=== PATIENT | female | born 1975 | race Caucasian/White ===

== ENCOUNTER 2022-04-01 09:49 | Day surgery (SDC) | payer OTHER, SELFPAY ==
[2022-04-01] VITALS (21 sets, daily range): BP systolic 129–177; BP diastolic 80–110; PULSE 77–103; RESP 18; TEMP 35.7–36.8; O2SAT 96–100; BMI 35.2; BMI 35.0
--- NOTE | 2022-04-01 11:03 | ED.ABDPAIN ---
HPI - Abdominal Pain General Time Seen by Provider: 11:03 Date Seen: 04/01/22 Chief Complaint: Abdominal Pain Stated Complaint: Gallbladder pain, nausea Time Seen by Provider: 04/01/22 11:01 Source: patient Mode of arrival: ambulatory Limitations: no limitations History of Present Illness HPI narrative: Luna is a 46 year old female s/p ERCP at [facility] on 03/28 presents to the ED via private care with abdominal pain. Patient has a history of iron deficiency anemia, due to menorrhagia in the past, patient states that since her ERCP and sphincterectomy on 03/28 she was doing well, she ate tacos yesterday, around 5:00 p.m. she developed some right upper quadrant pain that radiates to her back, since then she has had ongoing nausea vomiting can not keep anything down, pain is 3/10. She denies any urinary complaints she did have some diarrhea, she is scheduled to see General surgery on 04/25 for possible cholecystectomy. She denies any fevers but has had chills, she denies any upper respiratory complaints, no cough, chest pain or shortness of breath. Pain is constant dull ache with intermittent sharp pains. Due to worsening pain presents emergency department. Related Data Home Medications Medication Instructions Recorded Confirmed ferrous sulfate 142 mg (45 mg 142 mg PO DAILY 04/01/22 04/01/22 iron) tablet,extended release (Slow Fe) ondansetron 4 mg disintegrating 4 mg PO Q4H PRN 04/01/22 04/01/22 tablet paroxetine HCl 30 mg tablet 30 mg PO DAILY 04/01/22 04/01/22 Previous Rx's Medication Instructions Recorded amoxicillin 875 mg-potassium 1 tab PO BID #14 tabs 04/02/22 clavulanate 125 mg tablet hydrocodone 5 mg-acetaminophen 325 1 - 2 tab PO Q6H PRN pain #25 tabs 04/02/22 mg tablet Allergies Allergy/AdvReac Type Severity Reaction Status Date / Time Sulfa (Sulfonamide Allergy Intermediate Verified 04/01/22 10:01 Antibiotics) Review of Systems Status of ROS Reports: 10 or more systems reviewed and unremarkable except as noted in History and below [facility] Medical History (Updated 04/01/22 @ 20:14 by Tiffanie Alonso MD) Depression with anxiety Fibroid uterus Iron deficiency anemia Menorrhagia Obesity Surgical History (Updated 04/01/22 @ 20:08 by Tiffanie Alonso MD) H/O wisdom tooth extraction S/P ERCP Social History (Updated 04/01/22 @ 20:11 by Tiffanie Alonso MD) Narrative: She works in at a [employer]; ; one daughter. Lives in [place]. no tobacco; social alcohol. Highest level of school completed/degree received: Master's degree Smoking Status: Never smoker Do you use any of these nicotine containing products: None Second hand tobacco smoke exposure: No How often do you have a drink containing alcohol: monthly or less How many standard drinks containing alcohol do you have on a typical day: 1 or 2 How often do you have six or more drinks on one occasion: Never AUDIT-C Alcohol total score: 1 Non-prescribed substance use: denies use Caffeine: Yes (coffee) service: No Exam Const: Vital Signs, click to edit/add: Vital Signs - 24 hr 04/01/22 09:56 04/01/22 11:45 04/01/22 11:46 Temperature 96.3 F L Pulse Rate 88 94 Pulse Rate [Pulse Oximeter] 98 Respiratory Rate 18 Blood Pressure 164/92 H Blood Pressure [Ri ght Upper Arm] 160/105 H Pulse Oximetry 99 98 98 Oxygen Delivery Me thod Room Air 04/01/22 12:00 04/01/22 12:01 04/01/22 12:02 Temperature Pulse Rate 89 94 91 Pulse Rate [Pulse Oximeter] Respiratory Rate Blood Pressure 151/92 H Blood Pressure [Ri ght Upper Arm] Pulse Oximetry 98 99 100 Oxygen Delivery Me thod 04/01/22 12:30 04/01/22 12:32 04/01/22 13:00 Temperature Pulse Rate 93 93 95 Pulse Rate [Pulse Oximeter] Respiratory Rate Blood Pressure 136/80 Blood Pressure [Ri ght Upper Arm] Pulse Oximetry 97 97 97 Oxygen Delivery Me thod 04/01/22 13:01 04/01/22 13:31 04/01/22 14:01 Temperature Pulse Rate 93 Pulse Rate [Pulse Oximeter] Respiratory Rate Blood Pressure 143/86 H 144/85 H 143/86 H Blood Pressure [Ri ght Upper Arm] Pulse Oximetry 97 Oxygen Delivery Me thod Common normals: no apparent distress and oriented x3 General appearance: cooperative Orientation/consciousness: Yes awake, Yes oriented to person and Yes oriented to place HENMT: Common normals: normocephalic, TM's normal bilaterally and external nose normal Head and scalp: normal to inspection and normocephalic Nose: external nose normal Tympanic membrane: TM's normal bilaterally Mouth: oral and palatal mucosa normal Eye: Common normals: PERRL and EOMs intact bilaterally Pupil: PERRL Neck & C-Spine: Common normals: full ROM and supple Lymph: Lymphatic: no lymphadenopathy noted Chest: Common normals: inspection of chest normal Resp: Common normals: normal respiratory effort and clear to auscultation bilaterally Auscultation: clear to auscultation bilaterally Cardio: Common normals: regular rate, S1 normal heart sound, S2 normal heart sound and peripheral pulses 2+ throughout Rate: regular rate Heart sounds: S1 normal and S2 normal Peripheral pulses: pulses 2+ throughout GI: Common normals: soft to palpation Palpation: soft Other: Tender to palpation the right upper quadrant and right flank area, no rebound or guarding. : Common normals: no CVA tenderness Bladder/kidney exam: no CVA tenderness Back & Pelvis: Common normals: no CVA tenderness Extremity: Common normals: normal to inspection and full ROM Neuro: Common normals: oriented x3, CN's II-XII intact bilaterally and moves all extremities Sensorium/orientation: awake, oriented to person and oriented to place Course Course Hospital Course: 11:15 AM: AIDET performed, workup will include IV peripheral, 15 mg IV Toradol, 4 mg IV Zofran for pain and nausea, will obtain ECG, troponin, CBC, CRP, CMP and lipase, urinalysis, 1 L of 0.9 normal saline bolus, will also obtain a US gallbladder. Patient was in agreement. Reevaluation(s) Reevaluation #1: ECG showed a normal sinus rhythm, BPM 95, low-voltage QRS, no comparisons. CBC showed a leukocytosis 16.65, which according to patient is chronic,, hemoglobin stable at 9.8, MCV of 59 consistent with her iron deficiency anemia, metabolic panel showed mildly elevated AST, CRP was within normal limits, bilirubin labs within normal limits as well as lipase, point of care troponin negative, patient was updated, US showed 1. Cholelithiasis and gallbladder sludge, without findings to suggest cholecystitis. 2. Mild hepatic steatosis. 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 1:30 PM: Spoke with Dr. Palomo general surgery on-call, she will come and evaluate the patient, patient is doing well, pain has been controlled as well as nausea. Time: 12:57 Reevaluation #2: Recommendations by General surgery were to have her follow up as an outpatient or cholecystectomy tomorrow, patient decided to have surgery tomorrow, this was discussed with hospitalist Dr. Alonso, she accepts care of the patient to a [facility]. All questions answered. Time: 15:11 Vital Signs Vital signs: Initial Vital Signs Temperature 96.3 F L 04/01/22 09:56 Temperature Source Temporal Artery Scan 04/01/22 09:56 Pulse Rate 98 04/01/22 09:56 Respiratory Rate 18 04/01/22 09:56 Blood Pressure 160/105 H 04/01/22 09:56 Blood Pressure Mean 123 04/01/22 09:56 Blood Pressure Position Supine 04/01/22 09:56 Pulse Oximetry 99 04/01/22 09:56 Oxygen Delivery Method 04/01/22 09:56 Vital Signs Temperature 96.3 F L 04/01/22 09:56 Pulse Rate 98 04/01/22 09:56 Respiratory Rate 18 04/01/22 09:56 Blood Pressure 160/105 H 04/01/22 09:56 Pulse Oximetry 99 04/01/22 09:56 Oxygen Delivery Method 04/01/22 09:56 Temperature 100.6 F H 04/02/22 11:50 Pulse Rate 105 H 04/02/22 12:12 Respiratory Rate 16 04/02/22 12:12 Blood Pressure 127/76 04/02/22 12:12 Pulse Oximetry 97 04/02/22 12:12 Oxygen Delivery Method 04/02/22 07:00 MDM - Abdominal Pain Lab Data Labs: Lab Results 04/01/22 04/01/22 04/01/22 Range/Units 11:10 11:10 14:45 WBC 16.65 H (4.50-11.00) K/uL RBC 5.94 H (4.00-5.20) m/uL Hgb 9.8 L (12.0-16.0) gm/dL Hct 35.2 (33.0-51.0) % MCV 59 L (80-100) fL MCH 17 L (26-34) pg MCHC 28 L (32-36) gm/dL RDW Coeff of Dario 26.4 H (11.5-15.5) % Plt Count 839 H (140-440) K/uL Neut % (Auto) 86.5 H (42.0-72.0) % Lymph % (Auto) 8.2 L (20-44) % [place] % (Auto) 4.0 (0.0-11.0) % Eos % (Auto) 0.9 (0.0-7.0) % Baso % (Auto) 0.2 (0.0-3.0) % Neut # (Auto) 14.40 H (1.7-7.0) K/uL Lymph # (Auto) 1.40 (0.90-2.90) K/uL [place] # (Auto) 0.70 (0.00-0.90) K/UL Eos # (Auto) 0.10 (0.00-0.50) K/uL Baso # (Auto) 0.00 (0.00-0.30) K/uL Abs Immat Gran (auto) 0.00 (0.00-0.30) K/uL Imm/Tot Granulo (auto) 0.2 % Sodium 142 (135-149) mmol/L Potassium 3.9 (3.6-5.1) mmol/L Chloride 107 (96-114) mmol/L Carbon Dioxide 24 (20-32) mmol/L BUN 16 (5-24) mg/dL Creatinine 0.8 (0.5-1.5) mg/dL Estimated Creat Clear 86.36 Estimated GFR 93 ml/min Glucose 105 (60-115) mg/dL Calcium 9.4 (8.4-10.6) mg/dL Total Bilirubin 0.5 (0.1-1.5) mg/dL AST 34 (12-35) U/L ALT 41 H (4-35) U/L Alkaline Phosphatase 150 (40-150) U/L Troponin I < 0.01 L (0.01-0.04) ng/mL C-Reactive Protein < 0.5 L (0.5-1.0) mg/dL Total Protein 8.5 H (6.0-8.3) g/dL Albumin 4.8 (3.3-5.0) g/dL Lipase 70 (23-300) U/L Urine Color (Yellow) Urine Appearance (Clear) Urine pH (5.0-8.5) Ur Specific [place] (1.000-1.030) Urine Protein (Negative) Urine Glucose (UA) (Negative) Urine Ketones (Negative) Urine Blood (Negative) Urine Nitrite (Negative) Urine Bilirubin (Negative) Urine Urobilinogen (0.2-1.0) Ur Leukocyte Esterase (Negative) Urine RBC (0-2) Urine WBC (0-5) Ur Squamous Epith Cells (None-Few) Urine Bacteria (None) SARS-CoV-2 (PCR) Negative SARS-CoV-2 (Negative) 04/02/22 Range/Units 02:40 WBC (4.50-11.00) K/uL RBC (4.00-5.20) m/uL Hgb (12.0-16.0) gm/dL Hct (33.0-51.0) % MCV (80-100) fL MCH (26-34) pg MCHC (32-36) gm/dL RDW Coeff of Dario (11.5-15.5) % Plt Count (140-440) K/uL Neut % (Auto) (42.0-72.0) % Lymph % (Auto) (20-44) % [place] % (Auto) (0.0-11.0) % Eos % (Auto) (0.0-7.0) % Baso % (Auto) (0.0-3.0) % Neut # (Auto) (1.7-7.0) K/uL Lymph # (Auto) (0.90-2.90) K/uL [place] # (Auto) (0.00-0.90) K/UL Eos # (Auto) (0.00-0.50) K/uL Baso # (Auto) (0.00-0.30) K/uL Abs Immat Gran (auto) (0.00-0.30) K/uL Imm/Tot Granulo (auto) % Sodium (135-149) mmol/L Potassium (3.6-5.1) mmol/L Chloride (96-114) mmol/L Carbon Dioxide (20-32) mmol/L BUN (5-24) mg/dL Creatinine (0.5-1.5) mg/dL Estimated Creat Clear Estimated GFR ml/min Glucose (60-115) mg/dL Calcium (8.4-10.6) mg/dL Total Bilirubin (0.1-1.5) mg/dL AST (12-35) U/L ALT (4-35) U/L Alkaline Phosphatase (40-150) U/L Troponin I (0.01-0.04) ng/mL C-Reactive Protein (0.5-1.0) mg/dL Total Protein (6.0-8.3) g/dL Albumin (3.3-5.0) g/dL Lipase (23-300) U/L Urine Color Yellow (Yellow) Urine Appearance Clear (Clear) Urine pH 7.0 (5.0-8.5) Ur Specific [place] 1.020 (1.000-1.030) Urine Protein Negative (Negative) Urine Glucose (UA) Negative (Negative) Urine Ketones Negative (Negative) Urine Blood 2+ A (Negative) Urine Nitrite Negative (Negative) Urine Bilirubin Negative (Negative) Urine Urobilinogen 0.2 (0.2-1.0) Ur Leukocyte Esterase Negative (Negative) Urine RBC 5-10 A (0-2) Urine WBC 0-2 (0-5) Ur Squamous Epith Cells Few (None-Few) Urine Bacteria Few A (None) SARS-CoV-2 (PCR) (Negative) Discharge Plan Discharge Patient Disposition: Admitted As Inpatient Activity Level: No strenuous activity Activity Detail: No strenuous activity or lifting more than 15-20 lbs for 4-6 weeks. Discharge Diet: Regular
--- OUTSIDE RECORDS SUMMARY | 2022-04-01 11:22 | XMS_ITS | Encounter Summary ---
:1975 Author Organization [facility] Address [address] [place] [id number] Care Team Providers Name Role Phone Surekha Taveras Primary Care Provider Encounter Details Date Type Department Care Team Description 03/06/2022 Travel Social History Tobacco Use Types Packs/Day Years Used Date Smoking Tobacco: Never Assessed Sex Assigned at Date Recorded Not on file COVID-19 Exposure Response Date Recorded In the last 10 days, have you been in contact No / Unsure 03/06/2022 12:37 PM CDT with someone who was confirmed or suspected to have Coronavirus/COVID-19? documented as of this encounter Plan of Treatment Not on filedocumented as of this encounter Visit Diagnoses Not on filedocumented in this encounter Care Teams Grips Relationship Specialty Start Date End Date Surekha Taveras PCP - General Physician Review Consultant [facility] [id number] [place], [place] [id number] documented as of this encounter
--- OUTSIDE RECORDS SUMMARY | 2022-04-01 11:22 | XMS_ITS | Encounter Summary ---
:1975 Author Organization [facility] Address [address] [place] [id number] Care Team Providers Name Role Phone Surekha Taveras Primary Care Provider Reason for Visit Reason Comments Chest Pain Encounter Details Date Type Department Care Team Description 03/06/2022 [facility] Kennedy Medina MD [facility] [address] [place] [address] Anemia, unspecified type; [facility] Emergency Dep t Abdi Zamora MD [facility] [address] [place] [address] Iron deficiency; [address] Uterine leiomyoma, unspecifi ed location; [place], [place] Epigastric pa in; [phone] Biliary colic [phone] Social History Tobacco Use Types Packs/Day Years Used Date Smoking Tobacco: Never Assessed Sex Assigned at Date Recorded Not on file COVID-19 Exposure Response Date Recorded In the last 10 days, have you been in contact No / Unsure 03/06/2022 12:37 PM CDT with someone who was confirmed or suspected to have Coronavirus/COVID-19? documented as of this encounter Last Filed Vital Signs Vital Sign Reading Time Taken Comments Blood Pressure 148/97 03/06/2022 4:47 PM CDT Pulse 94 03/06/2022 4:47 PM CDT Temperature 37 ??C (98.6 ??F) 03/06/2022 12:47 PM CDT Respiratory Rate 18 03/06/2022 3:12 PM CDT Oxygen Saturation 100% 03/06/2022 4:47 PM CDT Inhaled Oxygen Concentration - - Weight 104.3 kg (230 lb) 03/06/2022 12:47 PM CDT Height 170.2 cm (5' 7) 03/06/2022 12:47 PM CDT Body Mass Index 36.02 03/06/2022 12:47 PM CDT documented in this encounter Discharge Instructions Discharge Abdi Louis MD - 03/06/2022 7:08 PM CDT Return to ER immediately if you develop: worsening symptoms, Fever > 101, persistent nausea or vomiting OR you have any other concerns about your health. Use tylenol for pain or discomfort Use Oxycodone for severe pain uncontrolled by above medications Opioid Medication Information You have been given a prescription for an opioid (narcotic) pain medicine and/or have received a pain medicine while here in the emergency department. These medicines can make you drowsy or impaired. You must not drive, operate dangerous equipment, or engage in any other dangerous activities while taking these medications. If you drive while taking these medications, you could be arrested for DUI, ordriving under the influence. Do not drink any alcohol while you are taking these medications. Opioid pain medications can cause addiction. If you have a history of chemical dependency of any type, you are at a higher risk of becoming addicted to pain medications. Only take these prescribed medications to treat your pain when all other options have been tried. Take it for as short a time and asfew doses as possible. Store your pain pills in a secure place, as they are frequently stolen and provide a dangerous opportunity for children or visitors in your house to start abusing these powerful medications. We will not replace any lost or stolen medicine. As soon as your pain is better, you should flush all your remaining medication. Many prescription pain medications contain Tylenol (acetaminophen), including Vicodin, Tylenol #3, Steens, Lortab, and Percocet. You should not take any extra pills of Tylenol if you are using these prescription medications or you can get very sick. Do not ever take more than 4000 mg of acetaminophen in any 24 hour period. All opioids tend to cause constipation. Drink plenty of water and eat foods that have a lot of fiber, such as fruits, vegetables, prune juice, apple juice and high fiber cereal. Take a laxative if you don???t move your bowels at least every other day. Miralax, Milk of Magnesia, Colace, or Senna can beused to keep you regular. AttachmentsThe following attachments cannot be sent through Care Everywhere. Gallstones with Biliary Colic (British)Anemia (British)Fibroids, What Are (British)Anemia, Iron-Deficiency (Adult) (British)documented in this encounter Medications at Time of Discharge Medication Sig Dispensed Refills Start Date End Date famotidine (PEPCID) 20 Take 1 tablet (20 mg) 28 tablet 0 03/20/2022 MG tablet by mouth 2 times daily for 14 days ferrous sulfate (SLO-FE) Take 1 tablet (142 14 tablet 0 03/20/2022 142 (45 Fe) MG CR tablet mg) by mouth daily for 14 days ondansetron (ZOFRAN ODT) Take 1 tablet (4 mg) 10 tablet 0 1 03/09/2022 4 MG ODT tab by mouth every 8 hours as needed for vomiting or nausea oxyCODONE (ROXICODONE) 5 Take 1 tablet (5 mg) 8 tablet 0 1 03/09/2022 MG tablet by mouth every 6 hours as needed for pain documented as of this encounter ED Notes Charlene Hurtado RN - 03/06/2022 12:44 PM CDT Pt presents for evaluation of right sided chest pain, localized to under the breast. Started at 0930. Pain is constant. Described as a sharp, pressure like pain. Rated a 4/10. Manzanares worse with movement. Sweating when pain first started and went in to the right shoulder. Called nurse line and was advisedto come in. Abdi Zamora MD - 03/06/2022 12:36 PM CDT [facility] Provider Note [facility] Emergency Department 7:27 PM 03/06/2022 Luna Zavala 46 year oldfemale Chief Complaint Patient presents with ??? Chest Pain HPI: 46-year-old female presenting with right upper quadrant abdominal and right lower chest pain this around 930 this morning. Pain was sharp radiating towards the right shoulder. She had some nausea and was sweating when this happened. No known heart or lung problems. No history of VTE. No previous abdominal surgery. Pain resolved prior to my interview with her after she received some medications in triage. ROS: 10 point ROS completed and negative other than mentioned above Allergies Allergies Active Allergy Reactions Severity Noted Date Comments Sulfa (Sulfonamide Antibiotics) Rash ?? 01/24/2011 ?? Medications Reconcile with Patient's Chart Medications Medication Sig Dispensed Refills Start Date End Date Status Therapeutic Wig?? Indications: Alopecia As directed. 1 Device?? 0 05/23/2015 ?? Active PARoxetine (PAXIL) 30 mg tablet?? Indications: Depression, recurrent (HC), CONNER (generalized anxiety disorder) Take 2 Tablets (60 mg) by mouth once daily. 60 Tablet?? 0 12/03/2021 ?? 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 Influenza, IIV3 (Age 6-35 mos) 02/22/2009 ?? Influenza, IIV3 (Age >=3 years) 03/16/2013 ?? Influenza, IIV4 01/27/2014 ?? Influenza,CCIIV4 PRESERV FREE 01/14/2020 ?? Influenza,LAIV4 Live Intranasal (Flumist) 02/14/2010 ?? MMR 02/21/1982 ?? Polio Virus, Unspecified 10/02/1990 ?? Td (Age >=7 Years) 01/15/2002 ?? Tdap 08/18/2012 ?? Surgical History Surgical History Surgery Date Site/Laterality Comments WISDOM TEETH EXTRACTION ? Medical History Medical History Medical History Date Comments Normal vaginal delivery 2006 ?? Family History Family History Medical History Relation Name Comments Graves' disease Father ?? Graves Heart Disease Maternal Grandfather ?? [place] Heart Disease Maternal Uncle 1 ?? [place] (50s) Heart Disease Maternal Uncle 2 ?? [place] (50s) Codi's thyroiditis Mother ?? Hypothyroid Heart Disease Mother ?? mitral valve prolapse; irreg heart beat Hyperlipidemia Mother ? Lung cancer Paternal Grandfather ?? smoker Stomach cancer Paternal Grandmother ? Family History Relation Name Status Comments Father ? Maternal Grandfather ? Maternal Uncle 1 ? Maternal Uncle 2 ? Mother ? Paternal Grandfather ? Paternal Grandmother ? Social History Social History Tobacco Use Types Packs/Day Years Used Date Former Smoker Cigarettes 0.25 4 2012 - 05/12/2013 Smokeless Tobacco: Never Used ? Social History Tobacco Cessation: Ready to Quit: No; Counseling Given: No Comments: social smoker Social History Alcohol Use Standard Drinks/Week Comments Yes 0 (1 standard drink = 0.6 oz pure alcohol) ?? Allergies Allergen Reactions ??? Sulfa Drugs Rash Physical Exam Vitals: BP (!) 148/97 Pulse 94 Temp 98.6 ??F (37 ??C) (Oral) Resp 18 Ht 1.702 m (5' 7) Wt104.3 kg (230 lb) LMP 03/02/2022 (Exact Date) SpO2 100% No BMI 36.02 kg/m?? Gen: well appearing, in no acute distress HEENT: mmm, no rhinorrhea Neck: supple, no abnormal swelling Lungs: CTAB, no resp distress CV: rrr, no m/r/g, ppi Abd: soft, Tenderness with maximal inspiration with pressure in the right upper quadrant, Not a truepositive Alcantara's , nondistended, no rebound/masses/guarding/hsm Ext: no peripheral edema Skin: warm, dry, well perfused, no rashes/bruising/lesions on exposed skin Neuro: alert, MAEE, no gross motor or sensory deficits, gait stable Psych: Normal mood, normal affect Labs and Imaging: Labs Ordered and Resulted from Time of ED Arrival to Time of ED Departure BASIC METABOLIC PANEL - Abnormal Result Value Sodium 137 Potassium 3.9 Chloride 100 Carbon Dioxide (CO2) 24 Anion Gap 13 Urea Nitrogen 14.2 Creatinine 0.90 Calcium 9.6 Glucose 102 (*) GFR Estimate 80 D DIMER QUANTITATIVE - Abnormal D-Dimer Quantitative 1.34 (*) CBC WITH PLATELETS AND DIFFERENTIAL - Abnormal WBC Count 16.9 (*) RBC Count 5.52 (*) Hemoglobin 8.2 (*) Hematocrit 32.3 (*) MCV 59 (*) MCH 14.9 (*) MCHC 25.4 (*) RDW 23.1 (*) Platelet Count 758 (*) % Neutrophils 82 % Lymphocytes 11 % Monocytes 5 % Eosinophils 1 % Basophils 0 % Immature Granulocytes 1 NRBCs per 100 WBC 0 Absolute Neutrophils 13.9 (*) Absolute Lymphocytes 1.9 Absolute Monocytes 0.8 Absolute Eosinophils 0.1 Absolute Basophils 0.1 Absolute Immature Granulocytes 0.1 Absolute NRBCs 0.0 RETICULOCYTE COUNT - Abnormal % Reticulocyte 2.0 Absolute Reticulocyte 0.109 (*) IRON AND IRON BINDING CAPACITY - Abnormal Iron 13 (*) Iron Sat Index 3 (*) Iron Binding Capacity 501 (*) RETICULOCYTE COUNT - Abnormal % Reticulocyte 2.0 Absolute Reticulocyte 0.098 (*) HEPATIC FUNCTION PANEL - Abnormal Protein Total 8.2 Albumin 4.6 Bilirubin Total 0.4 Alkaline Phosphatase 137 (*) AST 157 (*) ALT 143 (*) Bilirubin Direct <0.20 TROPONIN T, HIGH SENSITIVITY - Normal Troponin T, High Sensitivity 6 INR - Normal INR 0.96 LIPASE - Normal Lipase 26 RBC AND PLATELET MORPHOLOGY RBC Morphology Confirmed RBC Indices MORPHOLOGY TRACKING BLOOD MORPHOLOGY PATHOLOGIST REVIEW LAB BLOOD MORPHOLOGY PATHOLOGIST REVIEW US Pelvic Complete with Transvaginal Final Result IMPRESSION: 1. Leiomyomatous uterus. Largest fibroid has a likely submucosal/intracavitary component, could potentially contribute to patient's bleeding. US Abdomen Limited Final Result IMPRESSION: 1. Cholelithiasis with no gallbladder wall thickening, pericholecystic fluid, or positive Alcantara sign. 2. Common bile duct upper limits of normal in size measuring 7 mm in greatest radial dimension if there are abnormal laboratory findings and clinical findings worrisome for bile duct dilatation, MRCP would be the exam of choice for further evaluation. 3. Moderate fatty infiltration of the liver. CT Chest Pulmonary Embolism w Contrast Final Result IMPRESSION: 1. No obvious findings to explain symptoms. 2. No pulmonary embolism. 3. Nonaneurysmal aorta without dissection. 4. Hepatic steatosis. ED Medications: Medications aspirin (ASA) chewable tablet 324 mg (324 mg Oral Given 03/06/22 1502) 0.9% sodium chloride BOLUS (0 mLs Intravenous Stopped 03/06/22 1649) sodium chloride (PF) 0.9% PF flush 100 mL (53 mLs Intravenous Given 03/06/22 1625) iopamidol (ISOVUE-370) solution 500 mL (71 mLs Intravenous Given 03/06/22 1625) ECG shows sinus tachycardia. No evidence of ischemia or arrhythmia Medical Decision Makin-year-old female here with right upper quadrant and right lower chest pain onset this morning. Currently having no symptoms on my examination. Initial tachycardia resolved as well. Unfortunately still has multiple active problems including anemia which is likely multifactorial including iron deficiency, chronic blood loss from the uterine fibroids. We also discussed the pericardial pain agree with biliary colic. No indication of common duct obstruction by labs and having no ongoing pain nausea or vomiting. Patient needs an MRCP at this point. No signs of concerning cardiogenic process. CT scan shows no PE pneumonia or other significant cardiopulmonary abnormality. Discussed with her we will start iron supplementation, antacid, symptomatic treatment for biliary colic episodes. Also recommend shefollow-up with gynecology related to the uterine fibroids and anemia and ongoing dysmenorrhea. She is comfortable with the plan was discharged home. Diagnosis: ICD-10-CM 1. Anemia, unspecified type D64.9 2. Iron deficiency E61.1 3. Uterine leiomyoma, unspecified location D25.9 4. Epigastric pain R10.13 5. Biliary colic K80.50 Disposition: Home Abdi Zamora MD [facility] Abdi Zamora MD 03/06/22 193 documented in this encounter Plan of Treatment Not on filedocumented as of this encounter Procedures Procedure Name Priority Date/Time Associated Comments Diagnosis US PELVIC STAT 03/06/2022 6:35 PM Results f or this TRANSABDOMINAL AND CDT procedure are in TRANSVAGINAL the results section. US ABDOMEN LIMITED STAT 03/06/2022 6:34 PM Res ults for this CDT procedure are i n the results section. MORPHOLOGY TRACKING STAT 03/06/2022 5:03 PM Re sults for this CDT procedure are i n the results section. BLOOD MORPHOLOGY STAT 03/06/2022 5:03 PM Resul ts for this PATHOLOGIST REVIEW CDT procedure are in the results section. RETICULOCYTE COUNT STAT 03/06/2022 5:03 PM Res ults for this CDT procedure are i n the results section. BLOOD MORPHOLOGY STAT 03/06/2022 5:03 PM Resul ts for this PATHOLOGIST REVIEW CDT procedure are in the results section. CT CHEST PULMONARY STAT 03/06/2022 4:34 PM Res ults for this EMBOLISM W CONTRAST CDT procedur e are in the results section. EXTRA TUBE STAT 03/06/2022 3:11 PM Results f or this CDT procedure are i n the results section. EXTRA RED TOP TUBE STAT 03/06/2022 3:11 PM Res ults for this CDT procedure are i n the results section. RBC AND PLATELET STAT 03/06/2022 3:11 PM Resul ts for this MORPHOLOGY CDT procedure are i n the results section. CBC WITH PLATELETS AND STAT 03/06/2022 3:11 PM Results for this DIFFERENTIAL CDT procedure are i n the results section. TROPONIN T, HIGH STAT 03/06/2022 3:11 PM Resul ts for this SENSITIVITY CDT procedure are i n the results section. CBC WITH PLATELETS & STAT 03/06/2022 3:11 PM R esults for this DIFFERENTIAL CDT procedure are i n the results section. RETICULOCYTE COUNT Add-On 03/06/2022 3:11 PM Res ults for this CDT procedure are i n the results section. INR STAT 03/06/2022 3:11 PM Results f or this CDT procedure are i n the results section. LIPASE Add-On 03/06/2022 3:11 PM Results f or this CDT procedure are i n the results section. IRON AND IRON BINDING Add-On 03/06/2022 3:11 PM Results for this CAPACITY CDT procedure are i n the results section. HEPATIC FUNCTION PANEL Add-On 03/06/2022 3:11 PM Results for this CDT procedure are i n the results section. D DIMER QUANTITATIVE STAT 03/06/2022 3:11 PM R esults for this CDT procedure are i n the results section. BASIC METABOLIC PANEL STAT 03/06/2022 3:11 PM Results for this CDT procedure are i n the results section. EKG 12-LEAD, TRACING STAT 03/06/2022 12:58 Res ults for this ONLY PM CDT procedure are i n the results section. documented in this encounter Results US Pelvic Complete with Transvaginal (03/06/2022 6:35 PM CDT) Anatomical Region Laterality Modality Abdomen/Pelvis Ultrasound Specimen (Source) Anatomical Collection Method Collection Time Re ceived Time Location / / Volume Laterality 03/06/2022 6:35 PM CDT Impressions 03/06/2022 6:46 PM CDT IMPRESSION: 1. ??Leiomyomatous uterus. Largest fibro id has a likely submucosal/intracavitary component, could potentially contribute to patient's bleeding. Narrative 03/06/2022 6:46 PM CDT EXAM: US PELVIC TRANSABDOMINAL AND TRANSVAGINAL LOCATION: [facility] DATE/TIME: 03/06/2022 6:35 PM INDICATION: abnormal bleeding, anemia COMPARISON: None. TECHNIQUE: Transabdominal scans were per formed. Endovaginal ultrasound was performed to better visualize the adnexa. FINDINGS: UTERUS: 9.0 x 6.5 x 5.2 cm. Normal in si ze and position. Two distinct uterine fibroids, largest in the posterior uterine body/fundus measuring up to 3.4 cm. This fibroid likely has a submucosal/intracavitary component. ENDOMETRIUM: 12 mm. Normal smooth endome trium. RIGHT OVARY: 2.7 x 2.3 x 1.3. cm. Normal . LEFT OVARY: 2.5 x 2.4 x 1.5 cm. Normal. No significant free fluid. Procedure Note Reymundo Flores MD - 03/06/2022Formatti ng of this note might be different from the original. EXAM: US PELVIC TRANSABDOMINAL AND TRANS VAGINAL LOCATION: [facility] DATE/TIME: 03/06/2022 6:35 PM INDICATION: abnormal bleeding, anemia COMPARISON: None. TECHNIQUE: Transabdominal scans were per formed. Endovaginal ultrasound was performed to better visualize the adnexa. FINDINGS: UTERUS: 9.0 x 6.5 x 5.2 cm. Normal in si ze and position. Two distinct uterine fibroids, largest in the posterior uterine body/fundus measuring up to 3.4 cm. This fibroid likely has a submucosal/intracavitary component. ENDOMETRIUM: 12 mm. Normal smooth endome trium. RIGHT OVARY: 2.7 x 2.3 x 1.3. cm. Normal . LEFT OVARY: 2.5 x 2.4 x 1.5 cm. Normal. No significant free fluid. IMPRESSION: 1. Leiomyomatous uterus. Largest fibroid has a likely submucosal/intracavitary component, could potentially contribute to patient's bleeding. Abdi Zamora MD IMG US ORDERABLES US Abdomen Limited (03/06/2022 6:34 PM CDT) Anatomical Region Laterality Modality Abdomen/Pelvis Ultrasound Specimen (Source) Anatomical Collection Method Collection Time Re ceived Time Location / / Volume Laterality 03/06/2022 6:34 PM CDT Impressions 03/06/2022 6:56 PM CDT IMPRESSION: 1. ??Cholelithiasis with no gallbladder wall thickening, pericholecystic fluid, or positive Alcantara sign. 2. ??Common bile duct upper limits of no rmal in size measuring 7 mm in greatest radial dimension if there are abnormal laboratory findings and clinical findings worrisome for bile duct dilatation, MRCP would be the exam of choice for further evaluation. 3. ??Moderate fatty infiltration of the liver. Narrative 03/06/2022 6:56 PM CDT EXAM: US ABDOMEN LIMITED LOCATION: [facility] DATE/TIME: 03/06/2022 6:34 PM INDICATION: RUQ pain COMPARISON: CT PE study 03/06/2022 TECHNIQUE: Limited abdominal ultrasound. FINDINGS: GALLBLADDER: There are moderate stone se en in the gallbladder. The gallbladder is otherwise normal in appearance with no gallbladder wall thickening, pericholecystic fluid, or positive Alcantara sign. BILE DUCTS: The common bile duct is at t he upper limits of normal in size measuring approximately 7 mm in greatest dimension with no significant intrahepatic bile duct dilatation seen. Laboratory correl ation would be helpful to rule out almendarez es of bile duct obstruction. If there are clinical and laboratory findings worrisome for bile duct obstruction, MRCP would be the exam of choice for further evaluation. LIVER: There is moderate increased paren chymal echogenicity throughout the liver consistent with fatty infiltration. No focal mass. No intrahepatic bile duct dilatation. RIGHT KIDNEY: No hydronephrosis. PANCREAS: The visualized portions are no rmal. No ascites. Procedure Note Sathya Mariee MD - 03/06/2022Format ting of this note might be different from the original. EXAM: US ABDOMEN LIMITED LOCATION: [facility] DATE/TIME: 03/06/2022 6:34 PM INDICATION: RUQ pain COMPARISON: CT PE study 03/06/2022 TECHNIQUE: Limited abdominal ultrasound. FINDINGS: GALLBLADDER: There are moderate stone se en in the gallbladder. The gallbladder is otherwise normal in appearance with no gallbladder wall thickening, pericholecystic fluid, or positive Alcantara sign. BILE DUCTS: The common bile duct is at t he upper limits of normal in size measuring approximately 7 mm in greatest dimension with no significant intrahepatic bile duct dilatation seen. Laboratory correlation would be helpful to rule out changes of bile duct obstruction. If there are clinical and laboratory findings worrisome for bile duct obstruction, MRCP would be the exam of choice for further evaluation. LIVER: There is moderate increased paren chymal echogenicity throughout the liver consistent with fatty infiltration. No focal mass. No intrahepatic bile duct dilatation. RIGHT KIDNEY: No hydronephrosis. PANCREAS: The visualized portions are no rmal. No ascites. IMPRESSION: 1. Cholelithiasis with no gallbladder wa ll thickening, pericholecystic fluid, or positive Alcantara sign. 2. Common bile duct upper limits of norm al in size measuring 7 mm in greatest radial dimension if there are abnormal laboratory findings and clinical findings worrisome for bile duct dilatation, MRCP would be the exam of choice for further evaluation. 3. Moderate fatty infiltration of the li adamaris. Abdi Zamora MD IMG US ORDERABLES Morphology Tracking (03/06/2022 5:03 PM CDT) Specimen Anatomical Collection Method / Collection Time Recei pal Time (Source) Location / Volume Laterality Blood STRUCTURE OF RIGHT Venipuncture / 03/06/2022 5:03 10/10/2021 5:13 UPPER LIMB / Unknown PM CDT PM CDT Unknown Abdi Zamora MD LAB - BLOOD ORDERABLES Performing Organization Address City/State/[place] [address] [facility] [address] Lab (1st floor, no room number) (ABNORMAL) Reticulocyte count (03/06/2022 5:03 PM CDT) Patholo gist Method Time Signature % Reticulocyte 2.0 0.5 - 2.0 03/06/2022 [facility] % 6:03 PM CDT Absolute 0.098 (H) 0.025 - 03/06/2022 LABORATORY Reticulocyte 0.095 6:03 PM CDT 10e6/uL Specimen Anatomical Collection Method / Collection Time Recei pal Time (Source) Location / Volume Laterality Blood STRUCTURE OF RIGHT Venipuncture / 03/06/2022 5:03 02/10 5:13 UPPER LIMB / Unknown PM CDT PM CDT Unknown Abdi Zamora MD LAB - BLOOD ORDERABLES Performing Organization Address City/State/ZIP Code [place] [address] [facility] [address] Lab (1st floor, no room number) Bld morphology pathology review (03/06/2022 5:03 PM CDT) Component Value Ref Test Analysis Performed Pathologis t Range Method Time At Signature Final Peripheral blood: 03/07/2022 [facility] Allen lectronically Diagnosis --Moderate anemia, microcytic hypochromic. 11:02 AM HOSPITAL signed by --Slight leukocytosis with neutrophilia. CDT PATHOLOGY Caden Wade, --Moderate thrombocytosis. LAB MD on 03/07/2022 at 11:02 A M Comment This patient has a microcyti c anemia. The peripheral blood morphology, red blood cell indicis, and serum iron studies are consistent with iron deficiency. If the iron deficiency cannot be explained base 03/07/2022 [facility] d upon diet and/or menstrual blood loss, then a search for occult bleeding is recommended. 11:02 AM HOSPITAL CDT PATHOLOGY Thrombocytosis is also prese nt. Thrombocytosis is commonly seen in iron deficiency. If thrombocytosis persists following iron replacement, repeat peripheral blood smear is recommended. LA B Clinical Acute anemia, 03/07/2022 [facility] Information thrombocytosis 11:02 AM HOSPITAL CDT PATHOLOGY LAB Peripheral The red blood cells appear h ypochromic. There is no increase in rouleaux formation. Polychromasia is present in appears mildly increased. Poikilocytosis appears mild and nonspecific. Platelets appear pr 03/07/2022 [place] Smear edominantly small, well gran ulated, and lack significant clumping or satellitosis. Lymphocytes are predominantly small with cytologically mature chromatin and appear overall polymorphous. Neutrophils co 11:02 AM HOSPITAL ntain normal cytoplasmic gra nulation and unremarkable nuclear morphology. There is no dysplasia and no circulating blasts are seen. CD T PATHOLOGY LAB Peripheral Latest Reference Range & Units 03/06/22 15:11 03/07/2022 [facility] Hematologic WBC 4.0 - 11.0 10e3/uL 16.9 (H) 11:02 AM HOSPITAL Data Hemoglobin 11.7 - 15.7 g/dL 8.2 (L) CDT PATHOLOGY Hematocrit 35.0 - 47.0 % 32.3 (L) LAB Platelet Count 150 - 450 10e3/uL 758 (H) RBC Count 3.80 - 5.20 10e6/uL 5.52 (H) MCV 78 - 100 fL 59 (L) MCH 26.5 - 33.0 pg 14.9 (L) MCHC 31.5 - 36.5 g/dL 25.4 (L) RDW 10.0 - 15.0 % 23.1 (H) % Neutrophils % 82 % Lymphocytes % 11 % Monocytes % 5 % Eosinophils % 1 % Basophils % 0 Absolute Basophils 0.0 - 0.2 10e3/uL 0.1 Absolute Eosinophils 0.0 - 0.7 10e3/uL 0.1 Absolute Immature Granulocytes <=0.4 10e3/uL 0.1 Absolute Lymphocytes 0.8 - 5.3 10e3/uL 1.9 Absolute Monocytes 0.0 - 1.3 10e3/uL 0.8 % Immature Granulocytes % 1 Absolute Neutrophils 1.6 - 8.3 10e3/uL 13.9 (H) Absolute NRBCs 10e3/uL 0.0 NRBCs per 100 WBC <1 /100 0 RBC Morphology Confirmed RBC Indices % Retic 0.5 - 2.0 % 2.0 Absolute Retic 0.025 - 0.095 10e6/uL 0.109 (H) (H): Data is abnormally high (L): Data is abnormally low Performing The technical 03/07/2022 [facility] Labs component of this 11:02 AM HOSPITAL testing was CDT PATHOLOGY completed at [facility], [facility] city and [facility] Specimen Anatomical Collection Method / Collection Time Recei pal Time (Source) Location / Volume Laterality Blood STRUCTURE OF RIGHT Venipuncture / 03/06/2022 5:03 1010/2021 5:14 UPPER LIMB / Unknown PM CDT PM CDT Unknown Comment: CBC with platelets differential and Reticulocyte count should be ordered concurrently with the peripheral smear ( all tests performed on the same tube of blood). The concurrent CBC with platelet s differential and Reticulocyte count are incorporated into the final peripheral s mear report and are necessary for interpretation. Abdi LECHUGA - UZMA ELIZABETH Performing Organization Address City/State/ZIP Code Phon e [facility] [place] [address] LAB Pathology Lab [address] Lab (1st floor, no room number) CT Chest Pulmonary Embolism w Contrast (03/06/2022 4:34 PM CDT) Anatomical Region Laterality Modality Chest, SUBRAD CT BODY, UMP CT CHEST Comp uted Tomography Specimen (Source) Anatomical Collection Method Collection Time Re ceived Time Location / / Volume Laterality 03/06/2022 4:34 PM CDT Impressions 03/06/2022 4:46 PM CDT IMPRESSION: 1. ??No obvious findings to explain symp toms. 2. ??No pulmonary embolism. 3. ??Nonaneurysmal aorta without dissect ion. 4. ??Hepatic steatosis. Narrative 03/06/2022 4:46 PM CDT EXAM: CT CHEST PULMONARY EMBOLISM W CONTRAST LOCATION: [facility] DATE/TIME: 03/06/2022 4:34 PM INDICATION: Shortness breath. Chest pain . COMPARISON: None. TECHNIQUE: CT chest pulmonary angiogram during arterial phase injection of IV contrast. Multiplanar reformats and MIP reconstructions were performed. Dose reduction techniques were used. CONTRAST: 71 mL Isovue 370. FINDINGS: ANGIOGRAM CHEST: No pulmonary embolism. Nonaneurysmal aorta without dissection. LUNGS AND PLEURA: Lungs are clear. No pl eural effusion or pneumothorax. MEDIASTINUM/AXILLAE: No adenopathy. Norm al heart size. No pericardial effusion. CORONARY ARTERY CALCIFICATION: None. UPPER ABDOMEN: Mild to moderate hepatic steatosis. MUSCULOSKELETAL: Unremarkable. Procedure Note ShannonAriDO - 03/06/2022Forma tting of this note might be different from the original. EXAM: CT CHEST PULMONARY EMBOLISM W CONT RAST LOCATION: [facility] DATE/TIME: 03/06/2022 4:34 PM INDICATION: Shortness breath. Chest pain . COMPARISON: None. TECHNIQUE: CT chest pulmonary angiogram during arterial phase injection of IV contrast. Multiplanar reformats and MIP reconstructions were performed. Dose reduction techniques were used. CONTRAST: 71 mL Isovue 370. FINDINGS: ANGIOGRAM CHEST: No pulmonary embolism. Nonaneurysmal aorta without dissection. LUNGS AND PLEURA: Lungs are clear. No pl eural effusion or pneumothorax. MEDIASTINUM/AXILLAE: No adenopathy. Norm al heart size. No pericardial effusion. CORONARY ARTERY CALCIFICATION: None. UPPER ABDOMEN: Mild to moderate hepatic steatosis. MUSCULOSKELETAL: Unremarkable. IMPRESSION: 1. No obvious findings to explain sympto ms. 2. No pulmonary embolism. 3. Nonaneurysmal aorta without dissectio n. 4. Hepatic steatosis. Daniel Medina MD IMG CT ORDERABLES Lipase (03/06/2022 3:11 PM CDT) P athologist Signature Lipase 26 13 - 60 U/L 03/06/2022 LABORATORY 6:04 PM CDT Specimen Anatomical Collection Method / Collection Time Recei pal Time (Source) Location / Volume Laterality Blood VENOUS LINE / Venipuncture / 03/06/2022 3:11 2 3:17 Unknown Unknown PM CDT PM CDT Abdi Zamora MD LAB - BLOOD ORDERABLES Performing Organization Address City/State/ZIP Code [place] [address] Care Lab [address] Lab (1st floor, no room number) (ABNORMAL) Hepatic panel (03/06/2022 3:11 PM CDT) Patholo gist Method Time Signature Protein Total 8.2 6.4 - 8.3 03/06/2022 [facility] g/dL 6:04 PM CDT Albumin 4.6 3.5 - 5.2 03/06/2022 [facility] g/dL 6:04 PM CDT Bilirubin Total 0.4 <=1.2 03/06/2022 [facility] mg/dL 6:04 PM CDT Alkaline 137 (H) 35 - 104 03/06/2022 [facility] Phosphatase U/L 6:04 PM CDT AST 157 (H) 10 - 35 03/06/2022 [facility] U/L 6:04 PM CDT ALT 143 (H) 10 - 35 03/06/2022 [facility] U/L 6:04 PM CDT Bilirubin Direct <0.20 0.00 - 03/06/2022 [facility] LABORATOR Y 0.30 mg/dL 6:04 PM CDT Specimen Anatomical Collection Method / Collection Time Recei pal Time (Source) Location / Volume Laterality Blood VENOUS LINE / Venipuncture / 03/06/2022 3:11 2 3:17 Unknown Unknown PM CDT PM CDT Abdi Zamora MD LAB - BLOOD ORDERABLES Performing Organization Address City/State/[place] [address] Care Lab [address] Lab (1st floor, no room number) (ABNORMAL) Iron and iron binding capacity (03/06/2022 3:11 PM CDT) P athologist Signature Iron 13 (L) 37 - 145 03/06/2022 [facility] ug/dL 5:09 PM CDT Iron Sat Index 3 (L) 15 - 46 % 03/06/2022 [facility] 5:09 PM CDT Iron Binding 501 (H) 240 - 430 03/06/2022 [facility] Capacity ug/dL 5:09 PM CDT Specimen Anatomical Collection Method / Collection Time Recei pal Time (Source) Location / Volume Laterality Blood VENOUS LINE / Venipuncture / 03/06/2022 3:11 2 3:17 Unknown Unknown PM CDT PM CDT Abdi Zamora MD LAB - BLOOD ORDERABLES Performing Organization Address City/[facility]/ZIP Code [place] [address] Care Lab [address] Lab (1st floor, no room number) (ABNORMAL) Reticulocyte count (03/06/2022 3:11 PM CDT) [facility] Method Time Signature % Reticulocyte 2.0 0.5 - 2.0 03/06/2022 [facility] % 7:26 PM CDT Absolute 0.109 (H) 0.025 - 03/06/2022 [facility] Reticulocyte 0.095 7:26 PM CDT 10e6/uL Specimen Anatomical Collection Method / Collection Time Recei pal Time (Source) Location / Volume Laterality Blood VENOUS LINE / Venipuncture / 03/06/2022 3:11 2 3:16 Unknown Unknown PM CDT PM CDT Abdi Zamora MD LAB - BLOOD ORDERABLES Performing Organization Address City/[facility]/ZIP Code [place] [address] Care Lab [address] Lab (1st floor, no room number) RBC and Platelet Morphology (03/06/2022 3:11 PM CDT) [facility] Method Time Signature RBC Morphology Confirmed RBC 03/06/2022 [facility] LABORAT ORY Indices 7:26 PM CDT Specimen Anatomical Collection Method / Collection Time Recei pal Time (Source) Location / Volume Laterality Blood VENOUS LINE / Venipuncture / 03/06/2022 3:11 2 3:16 Unknown Unknown PM CDT PM CDT Daniel Medina MD LAB - BLOOD ORDERABLES Performing Organization Address City/State/ZIP Code [place] [address] Care Lab [address] Lab (1st floor, no room number) Extra Red Top Tube (03/06/2022 3:11 PM CDT) P athologist Signature Hold Specimen JIC 03/06/2022 [facility] 4:31 PM CDT Specimen Anatomical Collection Method / Collection Time Recei pal Time (Source) Location / Volume Laterality Blood VENOUS LINE / Venipuncture / 03/06/2022 3:11 3:17 Unknown Unknown PM CDT PM CDT Daniel Medina MD LAB - BLOOD ORDERABLES Performing Organization Address City/State/ZIP Code [place] [address] Care Lab [address] Lab (1st floor, no room number) (ABNORMAL) CBC with platelets and differential (03/06/2022 3:11 PM CDT) [facility] Method Time Signature WBC Count 16.9 (H) 4.0 - 03/06/2022 [facility] 11.0 4:38 PM CDT 10e3/uL RBC Count 5.52 (H) 3.80 - 03/06/2022 [facility] 5.20 4:38 PM CDT 10e6/uL Hemoglobin 8.2 (L) 11.7 - 03/06/2022 [facility] 15.7 g/dL 4:38 PM CDT Hematocrit 32.3 (L) 35.0 - 03/06/2022 [facility] 47.0 % 4:38 PM CDT MCV 59 (L) 78 - 100 03/06/2022 [facility] fL 4:38 PM CDT MCH 14.9 (L) 26.5 - 03/06/2022 [facility] 33.0 pg 4:38 PM CDT MCHC 25.4 (L) 31.5 - 03/06/2022 [facility] 36.5 g/dL 4:38 PM CDT RDW 23.1 (H) 10.0 - 03/06/2022 [facility] 15.0 % 4:38 PM CDT Platelet Count 758 (H) 150 - 450 03/06/2022 [facility] 10e3/uL 4:38 PM CDT % Neutrophils 82 % 03/06/2022 [facility] 4:38 PM CDT % Lymphocytes 11 % 03/06/2022 [facility] 4:38 PM CDT % Monocytes 5 % 03/06/2022 [facility] 4:38 PM CDT % Eosinophils 1 % 03/06/2022 [facility] 4:38 PM CDT % Basophils 0 % 03/06/2022 [facility] 4:38 PM CDT % Immature 1 % 03/06/2022 [facility] Granulocytes 4:38 PM CDT NRBCs per 100 0 <1 /100 03/06/2022 [facility] WBC 4:38 PM CDT Comment: This is a corrected result. Pre vious result was 0 /100 on 03/06/2022 at 4:29 PM CDT Absolute Neutrophils 13.9 (H) 1.6 - 8.3 10e3/uL 03/06/20 4:38 PM [facility] CDT Absolute Lymphocytes 1.9 0.8 - 5.3 10e3/uL 03/06/2022 4:38 PM [facility] CDT Absolute Monocytes 0.8 0.0 - 1.3 10e3/uL 03/06/2022 4: 38 PM [facility] CDT Absolute Eosinophils 0.1 0.0 - 0.7 10e3/uL 03/06/2022 4:38 PM [facility] CDT Absolute Basophils 0.1 0.0 - 0.2 10e3/uL 03/06/2022 4: 38 PM [facility] CDT Absolute Immature 0.1 <=0.4 10e3/uL 03/06/2022 4:38 PM [facility] Granulocytes CDT Absolute NRBCs 0.0 10e3/uL 03/06/2022 4:38 PM [facility] LAB ORATORY CDT Comment: This is a corrected result. Pre vious result was 0.0 10e3/uL on 03/06/2022 at 4:29 PM CDT Specimen Anatomical Collection Method / Collection Time Recei pal Time (Source) Location / Volume Laterality Blood VENOUS LINE / Venipuncture / 03/06/2022 3:11 3:16 Unknown Unknown PM CDT PM CDT Daniel Medina MD LAB - BLOOD ORDERABLES Performing Organization Address City/State/ZIP Code [place] [address] Care Lab [address] Lab (1st floor, no room number) (ABNORMAL) D dimer quantitative (03/06/2022 3:11 PM CDT) [facility] Method Time Signature D-Dimer 1.34 (H) 0.00 - 03/06/2022 [facility] Quantitative 0.50 3:39 PM CDT ug/mL FEU Specimen Anatomical Collection Method / Collection Time Recei pal Time (Source) Location / Volume Laterality Blood VENOUS LINE / Venipuncture / 03/06/2022 3:11 2 3:17 Unknown Unknown PM CDT PM CDT Narrative LABORATORY - 03/06/2022 3:39 PM CDT This D-dimer assay is intended for use i n conjunction with a clinical pretest probability assessment model to exclude pulmonary embolism (PE) and deep venous thrombosis (DVT) in outpatients suspecte d of PE or DVT. The cut-off value is 0.50 ug/mL FEU. Daniel Medina MD LAB - BLOOD ORDERABLES Performing Organization Address City/State/[place] [address] Care Lab [address] Lab (1st floor, no room number) INR (03/06/2022 3:11 PM CDT) athologist Signature INR 0.96 0.85 - 1.15 03/06/2022 LABORATORY 3:37 PM CDT Specimen Anatomical Collection Method / Collection Time Recei pal Time (Source) Location / Volume Laterality Blood VENOUS LINE / Venipuncture / 03/06/2022 3:11 2 3:17 Unknown Unknown PM CDT PM CDT Daniel Medina MD LAB - BLOOD ORDERABLES Performing Organization Address City/[facility]/ZIP Code [place] [address] Care Lab [address] Lab (1st floor, no room number) Troponin T, High Sensitivity (03/06/2022 3:11 PM CDT) athologist Signature Troponin T, High 6 <=14 ng/L 03/06/2022 LABORATOR Y Sensitivity 3:41 PM CDT Comment: Either a High Sensitivity Troponin T bas silvia (0 hours) value = 100 ng/mL, or an increase in High Sensitivity Troponin T = 7 ng/mL at 2 hours compared to 0 hours (2-0 hours), suggests myocardial injury, and urgent clinical attention is required. ?? If the 2-0 hours increase is<7 ng/mL, a High Sensitivity Troponin T result above gender-specific reference ranges warrants further evaluation. Recommendations for further evaluation i nclude correlation with clinical decision-making tool (e.g., HEART), a 3rd High Sensitivity Troponin T test 2 hours after the 2nd (a 20% change from baseline woul d represent concern), admission for obse rvation, close PCC/cardiology follow-up, or urgent outpatient provocative testing. Specimen Anatomical Collection Method / Collection Time Recei pal Time (Source) Location / Volume Laterality Blood VENOUS LINE / Venipuncture / 03/06/2022 3:11 3:17 Unknown Unknown PM CDT PM CDT Daniel Medina MD LAB - BLOOD ORDERABLES Performing Organization Address City/State/ZIP Code [place] [phone] Care Lab [address] Lab (1st floor, no room number) (ABNORMAL) Basic metabolic panel (03/06/2022 3:11 PM CDT) Analysis Performed At Patho logist Time Signature Sodium 137 136 - 145 03/06/2022 LABORATORY mmol/L 3:44 PM CDT Potassium 3.9 3.4 - 5.3 03/06/2022 LABORATORY mmol/L 3:44 PM CDT Chloride 100 98 - 107 03/06/2022 LABORATORY mmol/L 3:44 PM CDT Carbon Dioxide 24 22 - 29 03/06/2022 LABORATORY (CO2) mmol/L 3:44 PM CDT Anion Gap 13 7 - 15 03/06/2022 LABORATORY mmol/L 3:44 PM CDT Urea Nitrogen 14.2 6.0 - 20.0 03/06/2022 LABORATORY mg/dL 3:44 PM CDT Creatinine 0.90 0.51 - 03/06/2022 LABORATORY 0.95 mg/dL 3:44 PM CDT Calcium 9.6 8.6 - 10.0 03/06/2022 LABORATORY mg/dL 3:44 PM CDT Glucose 102 (H) 70 - 99 03/06/2022 LABORATORY mg/dL 3:44 PM CDT GFR Estimate 80 >60 03/06/2022 LABORATORY mL/min/1.7 3:44 PM CDT 3m2 Comment: Effective May 01, 2021 eGF Rcr in adults is calculated using the 2020 CKD-EPI creatinine equation which includ es age and gender (Luis F et al., [place], DOI: 10.1056/DWHEyy3743315) Specimen Anatomical Collection Method / Collection Time Recei pal Time (Source) Location / Volume Laterality Blood VENOUS LINE / Venipuncture / 03/06/2022 3:11 3:17 Unknown Unknown PM CDT PM CDT Daniel Medina MD LAB - BLOOD ORDERABLES Performing Organization Address City/State/ZIP Code [place] [phone] Care Lab [address] Lab (1st floor, no room number) EKG 12-lead, tracing only (03/06/2022 12:58 PM CDT) Component Value Ref Range Test Analysis Performed Pathologis t Method Time At Signature Systolic Blood mmHg RADIOLOGY Pressure RESULTS Diastolic Blood mmHg RADIOLOGY Pressure RESULTS Ventricular Rate 111 BPM RADIOLOGY RESULTS Atrial Rate 111 BPM RADIOLOGY RESULTS MT Interval 156 ms RADIOLOGY RESULTS QRS Duration 74 ms RADIOLOGY RESULTS QT 348 ms RADIOLOGY RESULTS QTc 473 ms RADIOLOGY RESULTS P [place] 55 degrees RADIOLOGY RESULTS R AXIS 34 degrees RADIOLOGY RESULTS T [place] 37 degrees RADIOLOGY RESULTS Interpretation Sinus tachycardia RADIOLO GY ECG Otherwise normal ECG RESULTS No previous ECGs available Confirmed by - EMERGENCY CLEMENT Vaughan PHYSICIAN ([id number]), photo editor PARESH FRASER ([id number]) on 03/06/2022 2:05:44 PM Specimen Anatomical Collection Method Collection Time Receive d Time (Source) Location / / Volume Laterality 03/06/2022 12:58 03/06/2022 2:05 PM CDT PM CDT Daniel Medina MD ECG ORDERABLES Performing Organization Address City/State/ZIP Code Phon e Number RADIOLOGY RESULTS documented in this encounter Visit Diagnoses Diagnosis Anemia, unspecified type Iron deficiency Other disorders of iron metabolism Uterine leiomyoma, unspecified location Epigastric pain Abdominal pain, epigastric Biliary colic Calculus of gallbladder without mention of cholecystitis or obstruction documented in this encounter Administered Medications Inactive Administered Medications - up to 3 most recent administrations Medication Order MAR Action Action Date Dose Rate Site 0.9% sodium chloride BOLUS New Bag 03/06/2022 3:09 PM CDT 1,000 mLs 1000 mL/hr Intravenous, 1,000 mL, ONCE, at 1,000 mL/hr, Administer over 1 Hours, On Fri03/06/22 at 1445, For 1 dose aspirin (ASA) chewable tablet 324 mg Given 03/06/2022 3:02 PM CDT 324 mg 324 mg, Oral, ONCE, On Fri03/06/22 at 1445, For 1 dose, Hold if patient allergy to aspirin, or if aspirin has been given during this episode. iopamidol (ISOVUE-370) solution 500 mL Given 03/06/2022 4:25 PM CDT 71 mLs 500 mL, Intravenous, ONCE, On Fri03/06/22 at 1625, For 1 dose sodium chloride (PF) 0.9% PF flush 100 m L Given 03/06/2022 4:25 PM CDT 53 mLs 100 mL, Intravenous, ONCE, On Fri03/06/22 at 1625, For 1 dose documented in this encounter Active and Recently Administered Medications Times are shown in CDT. Scheduled Medication Order 03/04/2022 03/05/2022 03/06/2022 0.9% sodium chloride BOLUS (COMPLETED) 1509 (New Bag - Provider: Marii Ta RN)1649 (Stopped - Provider: Charlene Hurtado RN) Intravenous, 1,000 mL, ONCE, at 1,000 mL /hr, Administer over 1 Hours, On Fri03/06/22 at 1445, For 1 dose aspirin (ASA) chewable tablet 324 mg (COMPLETED) 1502 (Given - Provider: Marii Ta RN) 324 mg, Oral, ONCE, On Fri03/06/22 at 1 445, For 1 dose, Hold if patient allergy to aspirin, or if aspirin has been given during this episode. iopamidol (ISOVUE-370) solution 500 mL (COMPLETED) 1625 (Given - Provider: FRANSICO Stein) 500 mL, Intravenous, ONCE, On Fri03/06/22 at 1625, For 1 dose sodium chloride (PF) 0.9% PF flush 100 mL (COMPLETED) 1625 (Given - Provider: Valeria L Kendall, ARRT) 100 mL, Intravenous, ONCE, On Fri03/06/22 at 1625, For 1 dose documented in this encounter Care Teams Networking Administrator Relationship Specialty Start Date End Date Surekha Taveras PCP - General Physician Gluing Machine Operator 03/06/22 [facility] [address] [place] [address] documented as of this encounter
--- OUTSIDE RECORDS SUMMARY | 2022-04-01 11:22 | XMS_ITS | Clinical Summary ---
:1975 Author Organization [facility] Address [address] [place] [address] Care Team Providers Name Role Phone Surekha Taveras Primary Care Provider Allergies Active Allergy Reactions Severity Noted Date Comments Sulfa Drugs Rash Low 01/24/2011 Medications Medication Sig Dispensed Refills Start Date End Date Status ferrous sulfate Take 1 tablet 14 tablet 0 03/06/2022 2 (SLO-FE) 142 (45 Fe) (142 mg) by mouth MG CR tablet daily for 14 days ondansetron (ZOFRAN Take 1 tablet (4 10 tablet 0 03/06/2022 ODT) 4 MG ODT tab mg) by mouth every 8 hours as needed for vomiting or nausea oxyCODONE Take 1 tablet (5 8 tablet 0 03/06/2022 03/09/2022 E xpired (ROXICODONE) 5 MG mg) by mouth tablet every 6 hours as needed for pain famotidine (PEPCID) Take 1 tablet (20 28 tablet 0 03/06/2022 1 05/20/2021 20 MG tablet mg) by mouth 2 times daily for 14 days Encounters Date Type Specialty Care Team Description 03/07/2022 Telephone EMERGENCY MEDICINE Susannah Pelayo RN Lab Result Notice 03/06/2022 Emergency EMERGENCY MEDICINE Daniel Medina, Anemia, unspecified type; Iron deficiency; Abdi Zamora, Uter ine leiomyoma, unspecified location; Epigastric pain ; Biliary colic 03/06/2022 Travel from Last 3 Months Social History Tobacco Use Types Packs/Day Years Used Date Smoking Tobacco: Never Assessed Sex Assigned at Date Recorded Not on file COVID-19 Exposure Response Date Recorded In the last 10 days, have you been in contact No / Unsure 03/06/2022 12:37 PM CDT with someone who was confirmed or suspected to have Coronavirus/COVID-19? Last Filed Vital Signs Vital Sign Reading [...] Mass Index 36.02 03/06/2022 12:47 PM CDT Plan of Treatment Health Maintenance Due Date Last Done Comments ADVANCE CARE PLANNING 1975 ANNUAL REVIEW OF HM ORDERS 1975 CT COLONOGRAPHY 1976 FIT-DNA (Cologuard) 1975 FIT 1975 FLEX SIG 1975 HEPATITIS B IMMUNIZATION (1 1976 of 3 - 3-dose series) MAMMO SCREENING 1976 COLONOSCOPY 1986 COLORECTAL CANCER SCREENING 1986 HIV SCREENING 12/14/1991 HEPATITIS C SCREENING 1994 PAP 1997 PHQ-2 (once per calendar 05/12/2021 year) LIPID 2021 YEARLY PREVENTIVE VISIT 04/26/2022 04/26/2021 DTAP/TDAP/TD IMMUNIZATION 08/18/2022 08/18/2012, 01/15/2002 , (3 - Td or Tdap) 02/21/1982 IPV IMMUNIZATION Aged Out 10/02/1990 No longer eligi ble based on patient 's age to complete this topic COVID-19 Vaccine Completed 01/26/2022, 04/27/2021, 08/18/2020, Additional history exists INFLUENZA VACCINE Completed 02/28/2022, 01/14/2020, 01/27/2014, Additional history exists MENINGITIS IMMUNIZATION Aged Out No longe r eligible based on patient 's age to complete this topic Pneumococcal Vaccine: Aged Out No longer eligible Pediatrics (0 to 5 Years) based on patient's age and At-Risk Patients (6 to to co mplete this topic 64 Years) Procedures Procedure Name Priority Date/Time Associated Comments [...] CDT procedure are in the results section. BLOOD MORPHOLOGY STAT 03/06/2022 5:03 PM Resul ts for this PATHOLOGIST REVIEW CDT procedure are in the results section. MORPHOLOGY TRACKING STAT 03/06/2022 5:03 PM Re sults for this CDT procedure are i n the results section. RETICULOCYTE COUNT STAT 03/06/2022 5:03 PM Res ults for this CDT procedure are i n the results section. CT CHEST PULMONARY STAT 03/06/2022 4:34 PM Res ults for this EMBOLISM W CONTRAST CDT procedur e are in the results section. CBC WITH PLATELETS & [...] are i n the results section. EXTRA TUBE STAT 03/06/2022 [...] procedure are i n the results section. from Last 3 Months Results US Pelvic Complete with Transvaginal (03/06/2022 [...] EXAM: US PELVIC TRANSABDOMINAL AND TRANSVAGINAL LOCATION: [facility] DATE/TIME: 03/06/2022 6:35 PM INDICATION: abnormal bleeding, [...] US PELVIC TRANSABDOMINAL AND TRANS VAGINAL LOCATION: [facility] DATE/TIME: 03/06/2022 6:35 PM INDICATION: abnormal bleeding, [...] PM CDT EXAM: US ABDOMEN LIMITED LOCATION: [facility] DATE/TIME: 03/06/2022 6:34 PM INDICATION: RUQ pain [...] the original. EXAM: US ABDOMEN LIMITED LOCATION: [facility] DATE/TIME: 03/06/2022 6:34 PM INDICATION: RUQ pain [...] LAB - BLOOD ORDERABLES Performing Organization Address [facility] Phon [place] [address] Care Lab [address] Lab (1st floor, no room number) (ABNORMAL) Reticulocyte count (03/06/2022 5:03 PM CDT)Only the most recent of2 resultswithin the time period is included. Patholo gist Method Time Signature % Reticulocyte 2.0 0.5 - 2.0 03/06/2022 LABORATORY % 6:03 PM CDT Absolute 0.098 (H) 0.025 - 03/06/2022 LABORATORY Reticulocyte 0.095 6:03 PM CDT 10e6/uL Specimen Anatomical Collection Method / Collection Time Recei pal Time (Source) Location / Volume Laterality Blood STRUCTURE OF RIGHT Venipuncture / 03/06/2022 5:03 02/10 5:13 UPPER LIMB / Unknown PM CDT PM CDT Unknown Abdi Zamora MD LAB - BLOOD ORDERABLES Performing Organization Address [facility] [place] [address] Care Lab [address] Lab (1st floor, no room number) Bld morphology pathology review (03/06/2022 5:03 PM CDT) Component Value Ref Test Analysis Performed Pathologis t Range Method Time At Signature Final Peripheral blood: 03/07/2022 [facility] Allen lectronically Diagnosis --Moderate anemia, microcytic [...] iron deficiency cannot be explained base 03/07/2022 [facility] d upon diet and/or menstrual blood loss, then a search for occult bleeding is recommended. 11:02 AM [facility] CDT PATHOLOGY Thrombocytosis is also prese nt. Thrombocytosis is commonly seen in iron deficiency. If thrombocytosis persists following iron replacement, repeat peripheral blood smear is recommended. LA B Clinical Acute anemia, 03/07/2022 [facility] Information thrombocytosis 11:02 AM [facility] CDT PATHOLOGY LAB Peripheral The red blood cells appear h ypochromic. There is no increase in rouleaux formation. Polychromasia is present in appears mildly increased. Poikilocytosis appears mild and nonspecific. Platelets appear pr 03/07/2022 [facility] Smear edominantly small, well gran ulated, and lack significant clumping or satellitosis. Lymphocytes are predominantly small with cytologically mature chromatin and appear overall polymorphous. Neutrophils co 11:02 HOSPITAL ntain normal cytoplasmic gra nulation and unremarkable nuclear morphology. There is no dysplasia and no circulating blasts are seen. CD T PATHOLOGY LAB Peripheral Latest Reference Range & Units 03/06/22 15:11 03/07/2022 [facility] Hematologic WBC 4.0 - 11.0 10e3/uL [...] is abnormally low Performing The technical 03/07/2022 [facility] Labs component of this 11:02 AM HOSPITAL testing was CDT PATHOLOGY completed at [facility], [facility] and [facility] Specimen Anatomical Collection Method / Collection Time [...] are necessary for interpretation. Abdi [facility] Performing Organization Address City/State/ZIP Code [facility] e [facility] [place] [address] LAB Pathology Lab [address] [facility]. Lab (1st floor, no room number) CT [...] CT CHEST PULMONARY EMBOLISM W CONTRAST LOCATION: [facility] DATE/TIME: 03/06/2022 4:34 PM INDICATION: Shortness breath. [...] moderate hepatic steatosis. MUSCULOSKELETAL: Unremarkable. Procedure Note Ari Ortega DO - 03/06/2022Forma tting of this note might be different from the original. EXAM: CT CHEST PULMONARY EMBOLISM W CONT RAST LOCATION: [facility] DATE/TIME: 03/06/2022 4:34 PM INDICATION: Shortness breath. [...] steatosis. Daniel Medina MD IMG CT ORDERABLES Extra Red Top Tube (03/06/2022 3:11 PM CDT) athologist Signature Hold Specimen JI 03/06/2022 LABORATORY 4:31 PM CDT Specimen Anatomical Collection Method / Collection Time Recei pal Time (Source) Location / Volume Laterality Blood VENOUS LINE / Venipuncture / 03/06/2022 3:11 3:17 Unknown Unknown PM CDT PM CDT Daniel Medina MD LAB - BLOOD ORDERABLES Performing Organization Address City/[facility]/ZIP Code [place] [address] Care Lab [address] Lab (1st floor, no room number) RBC and Platelet Morphology (03/06/2022 3:11 PM CDT) [facility] Method Time Signature RBC Morphology Confirmed RBC 03/06/2022 [facility] LABORAT ORY Indices 7:26 PM CDT Specimen Anatomical Collection Method / Collection Time Recei pal Time (Source) Location / Volume Laterality Blood VENOUS LINE / Venipuncture / 03/06/2022 3:11 3:16 Unknown Unknown PM CDT PM CDT Daniel Medina MD LAB - BLOOD ORDERABLES Performing Organization Address [facility]/ZIP Code [place] [address] Care Lab [address] Lab (1st floor, no room number) (ABNORMAL) CBC with platelets and differential (03/06/2022 3:11 PM CDT) [facility] [employer] Method Time Signature WBC Count 16.9 (H) [...] Anatomical Collection Method / Collection Time Recei pla Time (Source) Location / Volume Laterality Blood VENOUS LINE / Venipuncture / 03/06/2022 3:11 2 3:16 Unknown Unknown PM CDT PM CDT Daniel Medina MD LAB - BLOOD ORDERABLES Performing Organization Address City/[facility]/ZIP Code [place] [phone] Care Lab [address] Lab (1st floor, no room number) Troponin T, High Sensitivity (03/06/2022 3:11 PM CDT) athologist Signature Troponin T, High 6 <=14 ng/L 03/06/2022 [facility] LABORATOR Y Sensitivity 3:41 PM CDT Comment: [...] Address City/State/ZIP Code [place] [address] Care Lab [address] Lab (1st floor, no room number) [...] LAB - BLOOD ORDERABLES Performing Organization Address City/[facility]/ZIP Code [place] [phone] Care Lab [address] Lab (1st floor, no room number) Lipase (03/06/2022 3:11 PM CDT) P athologist Signature Lipase 26 13 - 60 U/L 03/06/2022 [facility] LABORATORY 6:04 PM CDT Specimen Anatomical Collection Method / Collection Time Recei pal Time (Source) Location / Volume Laterality Blood VENOUS LINE / Venipuncture / 03/06/2022 3:11 2 3:17 Unknown Unknown PM CDT PM CDT Abdi Zamora MD LAB - BLOOD ORDERABLES Performing Organization Address City/[facility]/ZIP [place] [address] Care Lab [address] Lab (1st floor, no room number) [...] LAB - BLOOD ORDERABLES Performing Organization Address City/[facility]/[place] [address] Care Lab [address] Lab (1st floor, no room number) (ABNORMAL) Hepatic panel (03/06/2022 3:11 PM CDT) [facility] Method Time Signature Protein Total 8.2 6.4 [...] City/State/ZIP Code Phon [place] [phone] Care Lab [address] Lab (1st floor, no room number) (ABNORMAL) D dimer quantitative (03/06/2022 3:11 PM CDT) [facility] Method Time Signature D-Dimer 1.34 (H) 0.00 - 03/06/2022 [facility] Quantitative 0.50 3:39 PM CDT ug/mL FEU Specimen Anatomical Collection Method / Collection Time Recei pal Time (Source) Location / Volume Laterality Blood VENOUS LINE / Venipuncture / 03/06/2022 3:11 2 3:17 Unknown Unknown PM CDT PM CDT Narrative [facility] - 03/06/2022 3:39 PM CDT This [...] City/State/ZIP Code [place] [address] Care Lab [address] Lab (1st floor, no room number) [...] age and gender (Luis F et al., NEJM, DOI: 10.1056/MNWRat5466380) Specimen Anatomical Collection Method / Collection Time Recei pal Time (Source) Location / Volume Laterality Blood VENOUS LINE / Venipuncture / 03/06/2022 3:11 2 3:17 Unknown Unknown PM CDT PM CDT Daniel Medina MD LAB - BLOOD ORDERABLES Performing Organization Address City/State/ZIP Code Phon [place] [address] Care Lab [address] Lab (1st floor, no room number) EKG 12-lead, tracing only (03/06/2022 12:58 PM CDT) Component Value Ref Range Test Analysis Performed Pathologis t Method Time At Signature Systolic Blood mmHg RADIOLOGY Pressure RESULTS Diastolic Blood mmHg RADIOLOGY Pressure RESULTS Ventricular Rate 111 BPM RADIOLOGY RESULTS Atrial Rate 111 BPM RADIOLOGY RESULTS RI Interval 156 ms RADIOLOGY RESULTS QRS Duration 74 ms RADIOLOGY RESULTS QT 348 ms RADIOLOGY RESULTS QTc 473 ms RADIOLOGY RESULTS P [place] 55 degrees RADIOLOGY RESULTS R AXIS 34 degrees RADIOLOGY RESULTS T [place] 37 degrees RADIOLOGY RESULTS Interpretation Sinus tachycardia RADIOLO GY ECG Otherwise normal ECG RESULTS No previous ECGs available Confirmed by - EMERGENCY CLEMENT Vaughan PHYSICIAN ([id number]), health editor PARESH FRASER ([id number]) on 03/06/2022 2:05:44 PM Specimen Anatomical Collection Method Collection Time Receive d Time (Source) Location / / Volume Laterality 03/06/2022 12:58 03/06/2022 2:05 PM CDT PM CDT Daniel Medina MD ECG ORDERABLES Performing Organization Address City/State/ZIP Code Phon e Number RADIOLOGY RESULTS from Last 3 Months Insurance Payer Benefit Plan / Subscriber ID Effective Phone Address T ype Group Dates [id number] [id number] 2021-Pre [phone] [address] O OPEN ACCESS sent [address] [place] [address] Care Teams Electric Operator Relationship Specialty Start Date End Date Surekha Taveras PCP - General Physician Corrugated Sheet Material Sheeter 03/06/22 [facility] [address] [place] [address]
--- OUTSIDE RECORDS SUMMARY | 2022-04-01 11:22 | XMS_ITS | Encounter Summary ---
:1975 Author Organization [facility] Address [address] [place] [address] Care Team Providers Name Role Phone Surekha Taveras Primary Care Provider Reason for Visit Reason Onset Date Comments Lab Result Notice 03/07/2022 Encounter Details Date Type Department Care Team Description 03/07/2022 Telephone [facility] Susannah Pelayo RN Lab Result Notice Emergency Dept [address] [place] [address] Social History Tobacco Use Types Packs/Day Years Used Date Smoking Tobacco: Never Assessed Sex Assigned at Date Recorded Not on file COVID-19 Exposure Response Date Recorded In the last 10 days, have you been in contact No / Unsure 03/06/2022 12:37 PM CDT with someone who was confirmed or suspected to have Coronavirus/COVID-19? documented as of this encounter Miscellaneous Notes Telephone Encounter - Susannah Pelayo RN - 03/07/2022 3:26 PM CDT [facility] Emergency Department/Urgent Care Lab result notification: ?? Reason for call Notify of lab results, assess symptoms, review ED providers recommendations (if necessary) and advise per ED lab result f/u protocol. ?? Lab result Final Bld morphology pathology review Resulted after [facility] Emergency Dept visit on this date . RN to notify patient of result and advise to relay result to their PCP immediately. focuser (Patient???s current Symptoms), include time called. [Insert Left message here if message left] 3:26PM: Patient states she is feeling much better. RN Recommendations/Instructions per [facility] ED lab result protocol Patient notified of lab result and advised to relay result to their PCP immediately Final result faxed to PCP Magalis MARTIN, phone [phone], [facility]. The patient will call her PCP to discuss her result, she has no further questions. Please Contact your PCP clinic or return to the Emergency department if your: ??? Symptoms return. ??? Symptoms worsen or other concerning symptom's. PCP follow-up Questions asked: YES Susannah Pelayo RN [facility] Emergency Dept Lab Result RN Telephone Encounter - Susannah Pelayo RN - 03/07/2022 3:01 PM CDT [facility] Emergency Department/Urgent Care Lab result notification: Reason for call Notify of lab results, assess symptoms, review ED providers recommendations (if necessary) and advise per ED lab result f/u protocol. Lab result Final Bld morphology pathology review Resulted after [facility] Emergency Dept visit on this date . RN to notify patient of result and advise to relay result to their PCP immediately. 2:58PM: Left voicemail message requesting a call back to [phone] between 9 a.m. and 5:30 p.m. for patient's ED/ lab results. [facility] [place] Result RN [facility] Emergency Dept Lab Result RN documented in this encounter Plan of Treatment Not on filedocumented as of this encounter Visit Diagnoses Not on filedocumented in this encounter Care Teams Notch Grinder Relationship Specialty Start Date End Date Surekha Taveras PCP - General Physician Electrotype Molder [facility]/06[facility] [id number] [place] [id number] documented as of this encounter
--- NOTE | 2022-04-01 11:34 | CRLHL7_ITS ---
For Patients: As a result of the Century Cures Act, medical imaging exams and procedure reports are released immediately into your electronic medical record. You may view this report before your referring provider. If you have questions, please contact your health care provider. INDICATION: Right upper quadrant abdomen pain. TECHNIQUE: Ultrasound abdomen limited. Sonographic images of the right upper quadrant were obtained using waller-scale and color Doppler images. COMPARISON: None. FINDINGS: Liver: Mildly increased echogenicity is suggestive of steatosis. No suspicious masses. No intrahepatic biliary dilation. Gallbladder: Shadowing gallstones. Layering echogenic material is probably sludge. Normal wall thickness. No pericholecystic fluid. Common bile duct: 5 mm. Pancreas: Not well seen due to overlying bowel gas. Right kidney: Normal in size. Normal echotexture and cortex. No suspicious masses, stones, or hydronephrosis. Vasculature: Proximal abdominal aorta and IVC are unremarkable. IMPRESSION: 1. Cholelithiasis and gallbladder sludge, without findings to suggest cholecystitis. 2. Mild hepatic steatosis. Dictated by Mesfin Storm MD @ 04/01/2022 12:54:10 PM (Electronically Signed)
[2022-04-01] MEDS: 0.9 % SODIUM CHLORIDE 1000 ml 1,000 ML IV (11:40)
[2022-04-01] MEDS: ONDANSETRON 2 MG/ML inj 4 MG IVP (11:41)
[2022-04-01] MEDS: KETOROLAC 15 MG/ML inj IVP (11:41)
[2022-04-01 12:02] LABS: Basophils Percent Auto 0.2 % (0.0-3.0); Eosinophils Percent Auto 0.9 % (0.0-7.0); Hematocrit 35.2 % (33.0-51.0); Hemoglobin* 9.8 gm/dL (12.0-16.0); Immature Granulocytes Pct Auto 0.2 %; Lymphocytes Percent Auto 8.2 % (20-44); Mean Corpuscular HGB Conc 28 gm/dL (32-36); Mean Corpuscular Hemoglobin 17 pg (26-34); Mean Corpuscular Volume 59 fL (80-100); Neutrophils Percent Auto 86.5 % (42.0-72.0); Platelet Count* 839 K/uL (140-440); RDW Coefficient of Variation % 26.4 % (11.5-15.5); Red Blood Count 5.94 m/uL (4.00-5.20); White Blood Count* 16.65 K/uL (4.50-11.00)
[2022-04-01 12:11] LABS: Chloride* 107 mmol/L (96-114)
[2022-04-01 12:12] LABS: Albumin* 4.8 g/dL (3.3-5.0); Potassium* 3.9 mmol/L (3.6-5.1); Sodium* 142 mmol/L (135-149)
[2022-04-01 12:14] LABS: Creatinine* 0.8 mg/dL (0.5-1.5); Est. Creatinine Clearance* 86.36; Estimated Glomerular Filt Rate 93 ml/min; Slide Review Reflex No
[2022-04-01 12:15] LABS: Alanine Aminotransferase* 41 U/L (4-35); Alkaline Phosphatase* 150 U/L (40-150); Bilirubin Total* 0.5 mg/dL (0.1-1.5); Blood Urea Nitrogen* 16 mg/dL (5-24); Calcium* 9.4 mg/dL (8.4-10.6); Carbon Dioxide* 24 mmol/L (20-32); Glucose* 105 mg/dL (60-115); Lipase* 70 U/L (23-300); Total Protein* 8.5 g/dL (6.0-8.3)
[2022-04-01 12:28] LABS: C Reactive Protein* < 0.5 mg/dL (0.5-1.0); Troponin I* < 0.01 ng/mL (0.01-0.04)
[2022-04-01 12:36] LABS: Aspartate Amino Transferase* 34 U/L (12-35)
--- NOTE | 2022-04-01 14:38 | P.GSCN_ITS ---
History of Present Illness Consult details Date Seen: 04/01/22 Consult date: 04/01/22 Narrative: The patient is a 46-year-old female who presents to the emergency department today with right upper quadrant pain. Her history is such that on March 06 she had a severe episode of right upper quadrant pain radiating to her back. She was seen in [place] at the emergency department where she had a CT scan which showed gallstones. She had abnormal liver tests and was discharged home to follow up with her primary care doctor. Her primary care doctor referred her for an ERCP. The ERCP was done I believe on the . She had a sphincterotomy and some sludge removed. She was then referred to see a general surgeon as an outpatient. Last night she developed acute pain again in the right upper quadrant radiating to her back. This came on after eating tacos. She has had nausea vomiting and diarrhea but no fevers. She got Zofran pain medicine in the emergency department which helped her symptoms. She also recently has a diagnosis of anemia which I believe is iron deficient. This is being worked up at her outside facility. I believe it is secondary to menorrhagia per report. I do not have any of these records however Review of Systems Status of ROS: Reports: 10 or more systems reviewed and unremarkable except as noted in History and below [facility] Medical History (Updated 04/01/22 @ 16:53 by Marii Palomo MD) Anemia Menorrhagia Social History (Updated 04/01/22 @ 16:50 by Marii Palomo MD) Narrative: She works in [employer] at a [employer] Smoking Status: Never smoker Do you use any of these nicotine containing products: None Second hand tobacco smoke exposure: No How often do you have a drink containing alcohol: monthly or less How many standard drinks containing alcohol do you have on a typical day: 1 or 2 How often do you have six or more drinks on one occasion: Never AUDIT-C Alcohol total score: 1 Non-prescribed substance use: denies use Meds Home Medications and Allergies Home Medications Medication Instructions Recorded Confirmed Type ferrous sulfate 142 mg (45 mg 142 mg PO DAILY 04/01/22 04/01/22 History iron) tablet,extended release (Slow Fe) ondansetron 4 mg disintegrating 4 mg PO Q4H PRN 04/01/22 04/01/22 History tablet paroxetine HCl 30 mg tablet 30 mg PO DAILY 04/01/22 04/01/22 History Allergies Allergy/AdvReac Type Severity Reaction Status Date / Time Sulfa (Sulfonamide Allergy Intermediate Verified 04/01/22 10:01 Antibiotics) Exam Narrative: Exam Narrative: General appearance: Alert, cooperative, and in no distress Eyes: PERRLA, eye lids clear, and sclera white HENT Head: Normocephalic Ears: External ears normal Pulmonary: Breathing nonlabored on room air Cardiovascular Heart: Regular rate Extremities: warm and well perfused Gastrointestinal Abdominal: Mildly tender in the right upper quadrant. Negative Alcantara sign. No scars. Musculoskeletal: Extremities: Upper: Both upper extremities have normal joint range of motion and intact strength. Lower: Both lower extremities have normal joint range of motion and intact strength. Skin: Normal skin color, texture, and turgor. No rashes or lesions. Neurologic: No focal deficits Psychiatric: Alert, oriented, cooperative, normal affect. Const: Vital Signs, click to edit/add: Vital Signs - 24 hr 04/01/22 09:56 04/01/22 11:45 04/01/22 11:46 Temperature 96.3 F L Pulse Rate 88 94 Pulse Rate [Pulse Oximeter] 98 Respiratory Rate 18 Blood Pressure 164/92 H Blood Pressure [Ri ght Upper Arm] 160/105 H Pulse Oximetry 99 98 98 Oxygen Delivery Me thod Room Air 04/01/22 12:00 04/01/22 12:01 04/01/22 12:02 Temperature Pulse Rate 89 94 91 Pulse Rate [Pulse Oximeter] Respiratory Rate Blood Pressure 151/92 H Blood Pressure [Ri ght Upper Arm] Pulse Oximetry 98 99 100 Oxygen Delivery Me thod 04/01/22 12:30 04/01/22 12:32 04/01/22 13:00 Temperature Pulse Rate 93 93 95 Pulse Rate [Pulse Oximeter] Respiratory Rate Blood Pressure 136/80 Blood Pressure [Ri ght Upper Arm] Pulse Oximetry 97 97 97 Oxygen Delivery Me thod 04/01/22 13:01 04/01/22 13:31 04/01/22 14:01 Temperature Pulse Rate 93 Pulse Rate [Pulse Oximeter] Respiratory Rate Blood Pressure 143/86 H 144/85 H 143/86 H Blood Pressure [Ri ght Upper Arm] Pulse Oximetry 97 Oxygen Delivery Me thod Results Labs Labs: Abnormal lab results 04/01/22 04/01/22 Range/Units 11:10 11:10 WBC 16.65 H (4.50-11.00) K/uL RBC 5.94 H (4.00-5.20) m/uL Hgb 9.8 L (12.0-16.0) gm/dL MCV 59 L (80-100) fL MCH 17 L (26-34) pg MCHC 28 L (32-36) gm/dL RDW Coeff of Dario 26.4 H (11.5-15.5) % Plt Count 839 H (140-440) K/uL Neut % (Auto) 86.5 H (42.0-72.0) % Lymph % (Auto) 8.2 L (20-44) % Neut # (Auto) 14.40 H (1.7-7.0) K/uL ALT 41 H (4-35) U/L Troponin I < 0.01 L (0.01-0.04) ng/mL C-Reactive Protein < 0.5 L (0.5-1.0) mg/dL Total Protein 8.5 H (6.0-8.3) g/dL Diabetes panel 04/01/22 Range/Units 11:10 Sodium 142 (135-149) mmol/L Potassium 3.9 (3.6-5.1) mmol/L Chloride 107 (96-114) mmol/L Carbon Dioxide 24 (20-32) mmol/L BUN 16 (5-24) mg/dL Creatinine 0.8 (0.5-1.5) mg/dL Glucose 105 (60-115) mg/dL Calcium 9.4 (8.4-10.6) mg/dL AST 34 (12-35) U/L ALT 41 H (4-35) U/L Alkaline Phosphatase 150 (40-150) U/L Total Protein 8.5 H (6.0-8.3) g/dL Albumin 4.8 (3.3-5.0) g/dL Calcium panel 04/01/22 Range/Units 11:10 Calcium 9.4 (8.4-10.6) mg/dL Albumin 4.8 (3.3-5.0) g/dL Pituitary panel 04/01/22 Range/Units 11:10 Sodium 142 (135-149) mmol/L Potassium 3.9 (3.6-5.1) mmol/L Chloride 107 (96-114) mmol/L Carbon Dioxide 24 (20-32) mmol/L BUN 16 (5-24) mg/dL Creatinine 0.8 (0.5-1.5) mg/dL Glucose 105 (60-115) mg/dL Calcium 9.4 (8.4-10.6) mg/dL Adrenal panel 04/01/22 Range/Units 11:10 Sodium 142 (135-149) mmol/L Potassium 3.9 (3.6-5.1) mmol/L Chloride 107 (96-114) mmol/L Carbon Dioxide 24 (20-32) mmol/L BUN 16 (5-24) mg/dL Creatinine 0.8 (0.5-1.5) mg/dL Glucose 105 (60-115) mg/dL Calcium 9.4 (8.4-10.6) mg/dL Total Bilirubin 0.5 (0.1-1.5) mg/dL AST 34 (12-35) U/L ALT 41 H (4-35) U/L Alkaline Phosphatase 150 (40-150) U/L Total Protein 8.5 H (6.0-8.3) g/dL Albumin 4.8 (3.3-5.0) g/dL All other labs normal. Imaging Additional studies: Ultrasound of the gallbladder done today: IMPRESSION: 1. Cholelithiasis and gallbladder sludge, without findings to suggest cholecystitis. 2. Mild hepatic steatosis. Assessment and Plan Assessment and plan (1) Cholelithiasis: Status: Acute (2) Biliary colic: Status: Acute Plan Lorene is a 46-year-old female with apparent recent choledocholithiasis, now with persistent biliary colic, possible cholecystitis. She is somewhat better after her recent episode however she still has some right upper quadrant pain. Given her history of choledocholithiasis I think it is reasonable to proceed with cholecystectomy sooner rather than later. Because of her anemia, I have asked the hospitalist to see her to clear her for surgery which we would plan on doing tomorrow. Because of her white count I think antibiotics are appropriate. The patient and I discussed the procedure as well as risks and benefits of surgery which include bleeding, infection, bile leak, conversion to open or injury to other structures, specifically the common bile duct. We also discussed recovery. She is agreeable to proceed and we will tentatively plan on surgery tomorrow.
--- NOTE | 2022-04-01 14:38 | ED.NURSE ---
Heads up to house sup.
[2022-04-01 15:22] LABS: SARS PCR* Negative SARS-CoV-2 (Negative)
--- NOTE | 2022-04-01 15:48 | ED.NURSE ---
Bed request sent, m/s aware.
--- NOTE | 2022-04-01 16:29 | ED.NURSE ---
Report to ASHWIN Oakley.
[2022-04-01] MEDS: METOCLOPRAMIDE HCL 5 MG/ML INJ 10 MG IVP (16:35)
--- NOTE | 2022-04-01 16:51 | P.IMHP_ITS ---
Hospitalist- H&P: HPI History of Present Illness Date Seen: 04/01/22 Chief complaint: Gallbladder pain, nausea Narrative: ADMISSION HISTORY AND PHYSICAL - HOSPITALIST Chief Complaint: abdominal pain; known cholelithiasis -biliary colic [facility] ED on 03/06 - reviewed CBC reviewed from ED visit. 16.9 WBC, 8.2 hemoglobin, 758 K platelet count. MCV 59. BMP reviewed, creatinine is 0.9. LFTs revealed a normal bilirubin, AST ALT 157/143. Alk-phos 137 Lipase normal Reviewing 2020 labs at her last physical: Normal CMP, no elevation of the LFTs - no CBC done Last CBC I can find is 2015 hemoglobin was 14.1 HPI: 46-year-old white female, Lorene, presents with worsening abdominal pain. Patient 1st had abdominal pain on the 06 of March and presented to the [facility] ED in [facility]. She was diagnosed with biliary colic, iron deficiency anemia and a fibroid uterus. In the time since her initial ER visit she had a preliminary visit with Hematology, an ERCP, and a planned surgical consultation. She stated that the pain has been intermittent but not as bad as it had been at initiation. Last night the pain returned and she was having issues with nausea, abdominal pain and felt dehydrated. Her care has been fragmented between [facility], [facility], [facility]. She is from and her mom lives here; she knows the wait at other ERs and urgent cares and came here. I've updated the PFSH, medications and allergies in the Expanse tabs. INVESTIGATIONS: LABS/MICRO/ECG/IMAGING Afebrile, 96.3 Blood pressure has been hypertensive most of the day 160/105, 177/103 Heart rates been in the 100s down to 77 Respiratory rate is 18 and unlabored 99% on room air 102.058 kilos WBC 16.7, 86.5% neutrophils Hemoglobin 9.8 (improved!) MCV 59 Platelets 839 Electrolytes are normal, creatinine is 0.8 Total bilirubin is normal AST 34, ALT 41, alk-phos 150 troponin undetectable C reactive protein is undetectable Total protein 8.5 Lipase 70 Right upper quadrant ultrasound done in the ED 1. Cholelithiasis and gallbladder sludge, without findings to suggest cholecystitis. 2. Mild hepatic steatosis. REVIEW OF SYSTEMS: 12-point ROS completed with patient and negative unless otherwise stated in HPI or below. PHYSICAL EXAM: CODE STATUS: FULL CODE CONSTITUTIONAL: Conversive, good historian. A/O. Knows setting and context. VITAL SIGNS: see record. HEENT: Normocephalic, atraumatic. PERRL, EOMI, conjunctivae pink, no scleral icterus. Ears and nose externally normal. Pharynx normal. NECK: No JVD. No carotid bruit, no thyromegaly, no adenopathy. CHEST: Clear to auscultation bilaterally HEART: S1 and S2 normal. No harsh murmurs. Edema minimal ABDOMEN: obese; diffusely tender in the RUQ MUSCULOSKELETAL: No gross joint deformity or swelling. NEURO: Cranial nerves intact. Grossly intact. No asymmetric findings. SKIN: No rashes, petechiae, concerning changes PSYCHIATRIC: Euthymic. ADMIT TO MEDSURG: FLOOR CARE DVT: Lovenox GI: PO intake Time spent: 70 minutes examining patient, conferring with family and patient, care staff, developing care plan [facility] Medical History (Updated 04/01/22 @ 20:14 by Tiffanie Alonso MD) Depression with anxiety Fibroid uterus Iron deficiency anemia Menorrhagia Obesity Surgical History (Updated 04/01/22 @ 20:08 by Tiffanie Alonso MD) H/O wisdom tooth extraction S/P ERCP Social History (Updated 04/01/22 @ 20:11 by Tiffanie Alonso MD) Narrative: She works in [employer] at a [employer]; ; one daughter. Lives in [place]. no tobacco; social alcohol. Highest level of school completed/degree received: Master's degree Smoking Status: Never smoker Do you use any of these nicotine containing products: None Second hand tobacco smoke exposure: No How often do you have a drink containing alcohol: monthly or less How many standard drinks containing alcohol do you have on a typical day: 1 or 2 How often do you have six or more drinks on one occasion: Never AUDIT-C Alcohol total score: 1 Non-prescribed substance use: denies use Caffeine: Yes (coffee) service: No Meds Home Medications and Allergies Home Medications Medication Instructions Recorded Confirmed Type ferrous sulfate 142 mg (45 mg 142 mg PO DAILY 04/01/22 04/01/22 History iron) tablet,extended release (Slow Fe) ondansetron 4 mg disintegrating 4 mg PO Q4H PRN 04/01/22 04/01/22 History tablet paroxetine HCl 30 mg tablet 30 mg PO DAILY 04/01/22 04/01/22 History Allergies Allergy/AdvReac Type Severity Reaction Status Date / Time Sulfa (Sulfonamide Allergy Intermediate Verified 04/01/22 10:01 Antibiotics) Exam Const: Vital Signs, click to edit/add: Vital Signs - 24 hr 04/01/22 09:56 04/01/22 11:45 04/01/22 11:46 Temperature 96.3 F L Pulse Rate 88 94 Pulse Rate [Pulse Oximeter] 98 Respiratory Rate 18 Blood Pressure 164/92 H Blood Pressure [Ri ght Upper Arm] 160/105 H Pulse Oximetry 99 98 98 Oxygen Delivery Me thod Room Air 04/01/22 12:00 04/01/22 12:01 04/01/22 12:02 Temperature Pulse Rate 89 94 91 Pulse Rate [Pulse Oximeter] Respiratory Rate Blood Pressure 151/92 H Blood Pressure [Ri ght Upper Arm] Pulse Oximetry 98 99 100 Oxygen Delivery Me thod 04/01/22 12:30 04/01/22 12:32 04/01/22 13:00 Temperature Pulse Rate 93 93 95 Pulse Rate [Pulse Oximeter] Respiratory Rate Blood Pressure 136/80 Blood Pressure [Ri ght Upper Arm] Pulse Oximetry 97 97 97 Oxygen Delivery Me thod 04/01/22 13:01 04/01/22 13:31 04/01/22 14:01 Temperature Pulse Rate 93 Pulse Rate [Pulse Oximeter] Respiratory Rate Blood Pressure 143/86 H 144/85 H 143/86 H Blood Pressure [Ri ght Upper Arm] Pulse Oximetry 97 Oxygen Delivery Me thod 04/01/22 16:39 04/01/22 14:35 04/01/22 14:36 Temperature Pulse Rate 103 H 101 H Pulse Rate [Pulse Oximeter] 77 Respiratory Rate 18 Blood Pressure Blood Pressure [Ri ght Upper Arm] 177/103 H Pulse Oximetry 99 96 97 Oxygen Delivery Me thod Room Air 04/01/22 15:15 04/01/22 15:40 Temperature Pulse Rate 94 88 Pulse Rate [Pulse Oximeter] Respiratory Rate Blood Pressure Blood Pressure [Ri ght Upper Arm] Pulse Oximetry 97 96 Oxygen Delivery Me thod Hospitalist - H&P: Result Labs Labs: Short CBC 04/01/22 Range/Units 11:10 WBC 16.65 H (4.50-11.00) K/uL Hgb 9.8 L (12.0-16.0) gm/dL Hct 35.2 (33.0-51.0) % Plt Count 839 H (140-440) K/uL BMP 04/01/22 11:10 Sodium 142 Potassium 3.9 Chloride 107 Carbon Dioxide 24 BUN 16 Creatinine 0.8 Glucose 105 Calcium 9.4 Cardiac Enzymes 04/01/22 Range/Units 11:10 Troponin I < 0.01 L (0.01-0.04) ng/mL Liver Function 04/01/22 Range/Units 11:10 Total Bilirubin 0.5 (0.1-1.5) mg/dL AST 34 (12-35) U/L ALT 41 H (4-35) U/L Alkaline Phosphatase 150 (40-150) U/L Albumin 4.8 (3.3-5.0) g/dL Assessment and Plan Assessment and plan (1) Biliary colic: Problem comment: leukocytosis; previously elevated LFTs - pain after ERCP - d/w gen surg and we will cover with abx, ertapenem 1 gram q24. IV protonix. Analgesia/antiemetics. Fluids. Plan is for lap choly in the morning. Status: Acute (2) Cholelithiasis: Problem comment: s/p u/s x 2, 2 ER visits, ERCP Status: Acute (3) Iron deficiency anemia: Problem comment: has seen hematology; scheduled for iron infusions. on oral iron. Current hemoglobin 9.8, previously 8.2, currently menstruating Status: Acute (4) Fibroid uterus: Status: Acute (5) Depression with anxiety: Problem comment: Paxil Status: Acute (6) Menorrhagia: Problem comment: has chassis mechanic consult pending Status: Acute (7) Obesity: Status: Acute
[2022-04-01] MEDS: HYDROmorphone 0.5 mg/0.5 ml inj IVP ×2 (17:17→20:02)
[2022-04-01] MEDS: PANTOPRAZOLE SODIUM 40 MG INJ IVP (17:18)
[2022-04-01] MEDS: LACTATED RINGERS 1000 ML 1,000 ML 125 ML IV (17:25)
[2022-04-01] MEDS: ERTAPENEM 1 GM in 0.9 % SODIUM CHLORIDE Mini-bag 100 ML IVPB (20:02)
[2022-04-01] MEDS: ACETAMINOPHEN 325 MG TABLET PO (20:03)
[2022-04-01] MEDS: METOPROLOL TARTRATE 50 MG TABLET 25 MG PO (22:26)
--- NOTE | 2022-04-01 23:47 | PC.NURSE ---
Nursing Care Hours: [id number] Pt this shift came up from ED in wheelchair for c/o stomach pain intermittent for a month. 7/10 pain upon arrival, treated per eMAR, pain now 0/10. Tolerating clear liquids, no n/v. Void x1. Independent in room. One time dose metoprolol given for HTN.
[2022-04-02] VITALS (14 sets, daily range): BP systolic 111–137; BP diastolic 67–84; PULSE 98–123; RESP 14–24; TEMP 36.7–38.1; O2SAT 91–99
[2022-04-02] MEDS: LACTATED RINGERS 1000 ML 1,000 ML 125 ML IV (00:06)
[2022-04-02] MEDS: ACETAMINOPHEN 325 MG TABLET PO (02:20)
[2022-04-02 02:50] LABS: Appearance Urine Clear (Clear); Bilirubin Urine Negative (Negative); Blood Urine 2+ (Negative); Color Urine Yellow (Yellow); Glucose Urine Negative (Negative); Ketones Urine Negative (Negative); Leukocyte Esterase Urine Negative (Negative); Nitrite Urine Negative (Negative); Protein Urine Negative (Negative); Urobilinogen Urine 0.2 (0.2-1.0)
[2022-04-02 02:57] LABS: Bacteria Urine Few; Squamous Epithelial Cell Urine Few (None-Few); WBC Urine 0-2 (0-5)
--- NOTE | 2022-04-02 05:12 | PC.NURSE ---
[id number] Pt slept well during night, rating pain 2-3/10 during night, prn tylenol administered x1. updated pt on surgery time/expectations and goals, informed patient of post op goals and expectations, pt questions answered to pt satisfaction. No N/V during night, voiding without difficulty. denies sob, chest pain or headache. independent in room.
[2022-04-02] MEDS: BUPIVACAINE 0.25% 30 ML INJECTION (10:20)
--- NOTE | 2022-04-02 10:36 | P.GSOP_ITS ---
Operative Note Date of procedure: 04/02/22 Type of Procedure: 1. Laparoscopic cholecystectomy. Procedure Description: After discussing the risks and benefits of the procedure, the patient signed informed consent.? The operative site was marked and the patient was brought to the operating room and placed on the operating table in supine position.? Care was taken to pad the patient's pressure points.?? The patient was then intubated by anesthesia.?? The operative site was then prepped and draped in the usual sterile fashion.? A time-out was then performed. A 5-mm laparoscopy port was placed in the left upper quadrant guided by a 5-mm laparoscope placed into a translucent trochar.~ Passage through the layers of the abdominal wall was visualized with the laparoscope.~ A pneumoperitoneum was established. A 0-degree 5-mm laparoscope was advanced into the abdomen. The abdomen was briefly surveyed, and no adhesions were noted. A 10-mm port were placed infraumbilically and two more 5 mm ports were placed on the right under direct visualization by laparoscope. The camera was then changed to 10 mm 30- degree scope and placed into the abdomen through the 10 mm port. The left upper quadrant port entrance was examined and no injury to intra-abdominal organs was identified. The gallbladder was identified, and appeared to be inflamed. I was not able to grasp the fundus of the gallbladder. A laparoscopic needle was used to decompress the gallbladder. Approximately 40 mL of light yellow clear fluid was suctioned out of the gallbladder. The gallbladder was then grasped and retracted cephalad. The infundibulum was grasped and retracted laterally, exposing the peritoneum overlying the triangle of Calot. This was then divided and exposed in a blunt fashion and with hook cautery. Moderate amount of acute inflammation was noted. Common bile duct was not identified but care was taken not to injure it. Cystic artery was identified and tissues around it were dissected off. The cystic artery was anterior medial to the gallbladder infundibulum. Because the tissues were difficult to dissect bluntly, the cystic artery was clipped with 5 mm clips and divided to allow better visualization of the cystic duct. The cystic duct was then circumferentially dissected with hook cautery and bluntly. Inflammatory rind was tightly adherent to the mid cystic duct just proximal to the infundibulum. Dissection here was difficult because the tissues were densely adherent to the cystic duct. I elected to divide the gallbladder at the proximal infundibulum. 5 mm clips were placed on the gallbladder and the distal cystic duct. The clips did not go across the cystic duct. Once the gallbladder and cystic duct were divided, 0-0 PDS endoloop was placed over the cystic duct stump to securely close it. The gallbladder was dissected from the liver bed in retrograde fashion using hookcautery. Moderate amount of inflammation again was noted in the gallbladder wall. The plain between the gallbladder and gallbladder fossa was difficult to define. The gallbladder itself was entered in at least 2 locations posteriorly and small multiple stones came out from the gallbladder. When the gallbladder was dissected off the liver, it was placed in the Endo-Catch bag. The gallstones were collected and placed into the Endo-Catch back also. The gallbladder was then removed through the infraumbilical incision. The fascia of the incision had to be enlarged to accommodate removal of the gallbladder. Surgical site was examined for bleeding. No bleeding was seen in the surgical field. The fascia of the infraumbilical incision was then closed with interrupted 0-0 vicryl sutures using Luis Bertha needle under direct visualization. Pneumoperitoneum was completely reduced after viewing removal of the trocars under direct vision. The skin was then closed with 4-0 monocryl and steristrips were applied. Instrument, sponge, and needle counts were correct at closure and at the conclusion of the case. The patient was transferred to PACU in stable condition. Findings: Acute on chronic inflammation was noted. Multiple small stones came out from the gallbladder. Those were collected and removed from the abdomen. Anesthesia: GETA Surgeon: Bridger Rodarte MD Estimated blood loss (mL): 5 Condition: stable Disposition: PACU
--- NOTE | 2022-04-02 10:48 | W.ANESCHARGE ---
Anesthesia Charges Start Date/Time Anesthesia Start Date: 04/02/22 Anesthesia Start Time: 08:26 Stop Date/Time Anesthesia Stop Date: 04/02/22 Anesthesia Stop Time: 10:36 Summary Emergency: No
[2022-04-02] MEDS: ONDANSETRON 2 MG/ML inj 4 MG IVP (10:55)
--- NOTE | 2022-04-02 11:06 | W.ANESCHARGE ---
Anesthesia Charges Start Date/Time Anesthesia Start Date: 04/02/22 Anesthesia Start Time: 08:26 Stop Date/Time Anesthesia Stop Date: 04/02/22 Anesthesia Stop Time: 10:36 Summary Emergency: No
--- NOTE | 2022-04-02 11:29 | PC.NURSE ---
PATIENT WENT TO SURGERY AT 0815. OR STAFF UPDATED MED/SURG THAT PATIENT IS BEING TAKEN TO [facility] AND WILL DISCHARGE HOME FROM THERE.
== END 2022-04-02 12:21 | disposition home or self-care (01) ==
LOC: ED 16:43 → MEDSURG 20:02 → SS 04-02 09:24 → MEDSURG 04-02 09:25
PROVIDERS: Surgery; Emergency Provider Student in an Organized Health Care Education/Training Program; Visit Provider Surgery
PROC: 0FT44ZZ Resection of Gallbladder, Percutaneous Endoscopic Approach (ICD-10-PCS; CPT 47562; principal; 2022-04-02 08:30)
DX: K80.12 Calculus of gallbladder with acute and chronic cholecystitis without obstruction (principal); R10.11 Right upper quadrant pain; D50.9 Iron deficiency anemia, unspecified; D25.9 Leiomyoma of uterus, unspecified; F41.8 Other specified anxiety disorders; N92.0 Excessive and frequent menstruation with regular cycle; E66.9 Obesity, unspecified; Z68.35 Body mass index [BMI] 35.0-35.9, adult; K76.0 Fatty (change of) liver, not elsewhere classified
CPT/HCPCS: 47562; 00790; 36415; 76705; 80053; 81003; 81015; 83690; 84484; 85025; 86140; 87086; 87635; 88304; 93005; 99283; 99285; A9270; C9113; J0330; J1100; J1170; J1200; J1335; J1885; J2250; J2405; J2704; J2710; J2765; J3010; J3490; J7030; J7120